=== PATIENT | female | born 1975 | race Caucasian/White ===

== ENCOUNTER 2020-09-10 08:27 | Inpatient (IN) | payer BC, SELFPAY ==
[2020-09-10] VITALS (7 sets, daily range): BP systolic 98–101; BP diastolic 43–68
[~2020-09-10] VITALS: Ht 160 cm; Wt 51.7 kg
--- NOTE | 2020-09-10 08:27 | NUR ---
Patient ALBERTOSkylar LLOYD, triaged by RN. Waiting for an available bed.
--- NOTE | 2020-09-10 10:41 | NUR ---
Patient transferred to [facility]. RN evaluating patient.
--- NOTE | 2020-09-10 10:55 | NUR ---
Patient's Oncologist: Dr. Gonzalez [facility] [phone]
--- NOTE | 2020-09-10 11:01 | NUR ---
is evaluating the patient at bedside.
[2020-09-10] MEDS ORDERED: ONDANSETRON 4 MG/2 ML VIAL IVP ONE (11:05)
[2020-09-10] MEDS ORDERED: NACL 0.9% 1,000 ML IV ONE (11:05)
[2020-09-10] MEDS ORDERED: fentaNYL citrate 0.05 MG/ML VIAL IVP ONE (11:05)
--- NOTE | 2020-09-10 11:24 | NUR ---
DUE TO HYPOTENSION -- FENTANYL HELD.
--- NOTE | 2020-09-10 11:30 | NUR ---
RIGHT SUBCLAVIAN PORTACATH ACCESSED WITH STERILE TECHNIQUE. +BLOOD RETURN. FLUSHED WITH 10CC NORMAL SALINE WITHOUT DIFFICULTY.
[2020-09-10 12:10] LABS: BASOPHILS % (AUTO) 1.6 % (0.0-2.0); EOSINOPHILS % (AUTO) 0.1 % (0.0-4.0); HEMATOCRIT 44.1 % (36-48); HEMOGLOBIN 14.1 g/dL (12.0-16.0); LYMPHOCYTES # (AUTO) 0.1 K/uL (2.5-16.5); LYMPHOCYTES % (AUTO) 3.6 % (20.5-51.1); MEAN CORPUSCULAR HEMOGLOBIN 28 pg (27-31); MEAN CORPUSCULAR HGB CONC 32 g/dL (33-37); MEAN CORPUSCULAR VOLUME 87.3 fL (80-94); MONOCYTES # (AUTO) 0.2 K/uL (0.8-1.0); MONOCYTES % (AUTO) 8.3 % (1.7-9.3); NEUTROPHILS # (AUTO) 2.3 K/uL (1.8-7.7); NEUTROPHILS % (AUTO) 86.4 % (42.2-75.2); PLATELET COUNT (AUTO) 478 K/uL (140-450); RED BLOOD CELL COUNT(AUTO) 5.06 MIL/uL (4.20-5.40); RED CELL DISTRIBUTION WIDTH 18.8 % (11.6-13.7); WHITE BLOOD COUNT (AUTO) 2.6 K/uL (4.8-10.8)
--- NOTE | 2020-09-10 12:18 | NUR ---
TO CT VIA [facility].
[2020-09-10 12:34] LABS: ALBUMIN 2.4 g/dL (3.4-5.0); ANION GAP 22.2 (8-16); CARBON DIOXIDE 16.3 mmol/L (21-32); CREATININE 1.4 mg/dL (0.6-1.3); POTASSIUM 4.5 mmol/L (3.5-5.1); TOTAL BILIRUBIN 1.2 mg/dL (0.0-1.0)
[2020-09-10] MEDS ORDERED: LEVOFLOXACIN 500 MG/D5W PREMIX 100 ML IV ONE (13:05)
[2020-09-10] MEDS ORDERED: metroNIDAZOLE 500 MG/NS PREMIX 100 ML IV ONE ×2 (13:05→16:28)
[2020-09-10] MEDS ORDERED: MORPHINE SULFATE 2 MG/ML SYR IVP PRN (14:45)
[2020-09-10 15:02] LABS: PROTHROMBIN TIME 12.5 secs (10.8-13.4)
--- NOTE | 2020-09-10 15:25 | NUR ---
Patient's sister: Deepa [phone].
--- NOTE | 2020-09-10 15:25 | NUR ---
SOCIAL WORK NOTE: SHANE WAS INFORMED THAT PATIENT'S FAMILY WOULD LIKE TO SPEAK TO GLUE MAKER BONE. SHANE CONTACTED PATIENT'S SISTER ROSALIE [phone]. ROSALIE'S MAILBOX WAS FULL AND SHANE WAS UNABLE TO LEAVE VM. Addendum: 09/11/20 at 1109 by Angel Serrato SS Patient's Orientation Unable To Assess Information Provided By DARBY IVORY - MOTHER Comments SW WAS UNABLE TO MEET PATIENT AT BEDSIDE. SHANE COMPLETED ASSESSMENT WITH PATIENT'S MOTHER. PATIENT'S MOTHER REQUESTED FOR PATIENT'S SISTER TO BE ADDED TO EMERGENCY CONTACTS. Commercial Insurance Underwriter, Realtionship and Phone Number DARBY DODSON MOTHER [phone] ROSALIE DODSON SISTER [phone] Healthcare Power [facility] No Does Patient Have a POLST No Identifying Problems No Social Work Triggers Is A Social Work Consult Needed No Mandate Report Filed No Explanation Of Identifying Problems PATIENT IS A 44-YEAR-OLD FEMALE ADMITTED FOR PERFORATED VISCUS. PATIENT HAS PMHX OF CANCER. PER MOTHER, PATIENT LIVED ALONE AT [address] [place] [address] ALONE, BUT NOW LIVES WITH PARENTS. PATIENT RECEIVES CHEMO/RADIATION FROM [facility]. Admitted From Home Pre-Admission Level Of Functioning Status Independent/Ambulatory Prior Resources/Services Used In Last 12 Months No Prior Resources Used Prior DME No Prior DME Used Dialysis Comments N/A Living Situation Lives With Family House Patient Had Caregiver No Home Support No Caregiver Issues Financial Issues No Known Financial Issue Referral To The Financial Counselor Needed No Factors/Needs No D/C Needs Identified Pt/Rep Participated In Discharge Plan Yes Patient/Family Agress With Discharge Plan Yes Discharge Plan Comments TENTATIVE DISCHARGE PLAN IS FOR PATIENT TO RETURN HOME. DC Plan Status Initiated Addendum: 09/17/20 at 1418 by Angel Serrato PER PHYSICIAN'S ORDER, SHANE FAXED CLINICALS TO [facility]. SHANE WILL FOLLOW UP. Addendum: 09/17/20 at 1453 by Angel TURNER SHANE CONTACTED [facility] [phone]. SHANE SPOKE WITH ROLANDO AND VERIFIED THAT CLINICALS WERE RECEIVED. ROLANDO STATED THAT [employer] DOES NOT ACCEPT [facility]. SHANE CONTACTED [facility] [phone] AND SPOKE TO RHODA MCARTHUR FAX NUMBER - [phone]. PER RHODA [facility] IS CURRENTLY NOT ACCEPTING PATIENTS. SHANE CONTACTED [facility] AND SPOKE TO SHAUN. COLON PROVIDED FAX NUMBER [phone]. SHANE WILL FOLLOW UP WITH [facility]. Addendum: 09/17/20 at 1455 by Angel Serrato SHANE ALSO [facility]ED CLINICALS TO [facility]. Addendum: 09/17/20 at 1532 by Angel TURNER SHANE CONTACTED [facility] [phone] AND SPOKE TO LEAH WHO STATED THAT PACKET WOULD BE REVIEWED. SHANE CONTACTED [facility] [phone] [facility] [phone] WHO STATED THAT [facility] IS UNABLE TO TAKE BLUE SHIELD PPO AT THIS TIME. SHANE CONTACTED [facility] [phone] TO FAX TO [phone]. SHANE WILL FOLLOW UP. Addendum: 09/18/20 at 1136 by Angel Serrato SS SHANE CONTACTED [facility] AND SPOKE TO SHAUN. COLON STATED THAT HE WILL CONTACT DON REGARDING IF HE CAN ACCEPT PATIENT.
[2020-09-10] MEDS ORDERED: BUPIVACAINE-MPF 0.25% 30 ML VIAL INJ ONE (15:44)
--- NOTE | 2020-09-10 15:53 | NUR ---
Patient's daugher: Virgen Mars [phone].
--- NOTE | 2020-09-10 16:29 | NUR ---
PT LEFT TO OR AT THIS TIME. REPORT GIVEN TO HIWOT CHAPMAN AT BEDSIDE. ALL QUESTIONS ANSWERED.
[2020-09-10] MEDS ORDERED: SUGAMMADEX SODIUM 200 MG/2 ML VIAL IV ONE (17:07)
[2020-09-10] MEDS ORDERED: SUCCINYLCHOLINE CHLORIDE 200 MG/10 ML VIAL IVP ONE (17:07)
[2020-09-10] MEDS ORDERED: DESFLURANE 240 ML BTL INH ONE (17:07)
[2020-09-10] MEDS ORDERED: MIDAZOLAM 2 MG/2 ML VIAL ONE (17:07)
[2020-09-10] MEDS ORDERED: fentaNYL citrate 0.05 MG/ML VIAL ONE (17:07)
[2020-09-10] MEDS ORDERED: PROPOFOL 200 MG/20 ML VIAL IV ONE (17:07)
[2020-09-10] MEDS ORDERED: LACTATED RINGERS 1,000 ML IV SCH (18:35)
[2020-09-10] MEDS: FLUCONAZOLE 200 MG/NS PREMIX 100 ML IV SCH (19:00)
--- NOTE | 2020-09-10 19:10 | NUR ---
RECEIVED REPORT FROM OR NURSE FOR CONTINUITY OF CARE. PT IN BED, SUPINE POSITION. HOB ELEVATED. LETHARGIC, FLACC 0, NO SOB, NO APPARENT DISTRESS. ETT TO VENT: AC/VC FIO2 45% PEEP 5. S/P EXPLORE LAP, GASTRICULCER PERFORATION. WITH HX OF METASTASIZED CERVICAL CANCER. WITH LEFT EJ 18G, RIGH UPPER CHEST PORTACATH. PARKER INTACT AND PATENT. SAFETY PRECAUTIONS IN PLACE. WILL CONT TO MONITOR.
--- NOTE | 2020-09-10 19:17 | NUR ---
PT RECEIVED FROM OR AND PLACED ON VENT SETTINGS ANESTHESIOLOGIST PROVIDED VC 400 +5, f12 45%. PT IS AWAKE TOLERATED TRANSFER WELL. ALARMS ON AND AUDIBLE, VENT PLUGGED INTO RED OUTLET, AND AMBU AT BEDSIDE. WILL CONTINUE TO MONITOR.
[2020-09-10] MEDS ORDERED: MIDAZOLAM MDV 50 MG in NACL 0.9% 40 ML IV PRN (19:20)
[2020-09-10] MEDS ORDERED: fentaNYL citrate 1 MG in NACL 0.9% 80 ML IV PRN (19:20)
--- NOTE | 2020-09-10 19:30 | NUR ---
RECEIVED REPORT FROM DAY SHIFT. PT S/P EX LAP FOR REPAIR OF PERF ULCER. MID ABD DRESSING IN PLACE; CDI. X2 URSULA DRAINS #1 LEFT #2 RIGHT SEROSANG DRAINAGE NOTED. ETT TO VENT ON 45% FIO2 PEEP 5 R 12, ST 120S, NO EDEMA NOTED. PARKER CATH IN PLACE, DARK URINE NOTED. NGT TO R NARES, CLAMPED, PT NPO @ THIS TIME. 18 G L EJ NOTED, R SIDED UPPER CHEST PORTACATH NOTED. BED LOCKED IN LOWEST POSITION. WILL CONTINUE TO OBSERVE.
[2020-09-10] MEDS: FAMOTIDINE 20 MG/2 ML VIAL IV SCH (21:00)
--- NOTE | 2020-09-10 21:45 | NUR ---
FENTANYL 0.5 MCG/KG AND VERSED @ 1 MG/HR DRIP STARTED, RASS-1. WILL CONTINUE TO OBSERVE.
[2020-09-10] MEDS ORDERED: MIDAZOLAM MDV 100 MG in NACL 0.9% 80 ML IV PRN (22:05)
[2020-09-11] VITALS (28 sets, daily range): BP systolic 97–130; BP diastolic 60–112
[2020-09-11] MEDS: NACL 0.9% 1,000 ML IV SCH ×2 (01:15→11:17)
[2020-09-11] MEDS ORDERED: ACETAMINOPHEN 325 MG TAB PO PRN (01:15)
[2020-09-11] MEDS ORDERED: ONDANSETRON 4 MG/2 ML VIAL IM/IVP PRN (01:15)
[2020-09-11] MEDS ORDERED: LORazepam 2 MG/ML VIAL IM/IVP PRN (01:15)
[2020-09-11] MEDS ORDERED: HYDROcodone/APAP 5/325 MG 1 TAB TAB PO PRN (01:15)
[2020-09-11] MEDS ORDERED: ZOLPIDEM 5 MG TAB PO PRN (01:15)
[2020-09-11] MEDS ORDERED: POTASSIUM CHLORIDE 10 MEQ TABER PO PRN (01:15)
[2020-09-11] MEDS ORDERED: DOCUSATE SODIUM 100 MG GELCAP PO PRN (01:15)
--- NOTE | 2020-09-11 02:30 | NUR ---
PT HAS EYES CLOSED; AROUSABLE, RASS -1, DENIES PAIN @ THIS TIME. WILL CONTINUE TO OBSERVE, 100% SPO2, BP 104/62. WILL CONTINUE TO OBSERVE.
[2020-09-11] MEDS: PIPERACILLIN/TAZOBACTAM 2.25 GM in DEXTROSE 5% 50 ML IV SCH ×3 (05:00→21:00)
[2020-09-11] MEDS ORDERED: PIPERACILLIN/TAZOBACTAM 2.25 GM VIAL IV ONE (05:29)
--- NOTE | 2020-09-11 06:48 | NUR ---
PATIENT HAS BEEN SCREENED AND CATEGORIZED HIGH NUTRITION RISK. PATIENT WILL BE SEEN WITHIN 1-2 DAYS OF ADMISSION. 09/11/20 - 09/12/20 MAYO COOPER MBA, RD
[2020-09-11 08:03] LABS: PROTHROMBIN TIME 15.7 secs (10.8-13.4)
[2020-09-11 08:09] LABS: CHOL/HDL RATIO 4.6 (1-4.5); MAGNESIUM 2.1 mg/dL (1.8-2.4); PHOSPHORUS 5.4 mg/dL (2.5-4.9); THYROID STIMULATING HORMONE 1.93 uIU/mL (0.34-3.74)
--- NOTE | 2020-09-11 08:30 | NUR ---
RECEIVED REPORT FROM NIGHTSHIFT SHIFT. ETT TO VENT ON 45% FIO2 PEEP 5 R 12, NO SIGNS OF DISTRESS NOTED. ABLE TO MAKE SOME NEEDS KNOWN. MID ABD DRESSING IN PLACE; CDI. X2 URSULA DRAINS #1 LEFT #[address] DRAINAGE NOT[address] ST 120S, NO EDEMA NOTED. PARKER CATH IN PLACE, DARK URINE NOTED. NGT TO R NARES, CLAMPED, PT NPO @ THIS TIME. 18 G L EJ NOTED, R SIDED UPPER CHEST PORTACATH NOTED. BED LOCKED IN LOWEST POSITION. SAFETY MEASURES IN PLACE. WILL CONTINUE TO MONITOR
--- NOTE | 2020-09-11 08:30 | NUR ---
REPORT GIVEN TO DAY SHIFT FOR CONTINUITY OF CARE.
[2020-09-11] MEDS: FAMOTIDINE 20 MG/2 ML VIAL IV SCH ×2 (09:35→21:00)
--- NOTE | 2020-09-11 09:49 | NUR ---
ADMINISTERED SCHED MED. PT TOLERATED WELL. SAFETY MEASURES IN PLACE. WILL CONTINUE TO MONITOR
--- NOTE | 2020-09-11 13:15 | NUR ---
ADMINISTERED SCHED MED. PT TOLERATED WELL. SAFETY MEASURES IN PLACE. WILL CONTINUE TO MONITOR
[2020-09-11] MEDS: LACTATED RINGERS 1,000 ML IV SCH ×2 (13:57→21:50)
[2020-09-11 14:32] LABS: BASOPHILS # (AUTO) 0.1 K/uL (0.00-0.22); BASOPHILS % (AUTO) 0.7 % (0.0-2.0); EOSINOPHILS # (AUTO) 0.1 K/uL (0-0.4); EOSINOPHILS % (AUTO) 0.7 % (0.0-4.0); HEMATOCRIT 37.5 % (36-48); HEMOGLOBIN 12.2 g/dL (12.0-16.0); LYMPHOCYTES # (AUTO) 0.1 K/uL (2.5-16.5); LYMPHOCYTES % (AUTO) 1.4 % (20.5-51.1); MEAN CORPUSCULAR HEMOGLOBIN 28 pg (27-31); MEAN CORPUSCULAR HGB CONC 33 g/dL (33-37); MEAN CORPUSCULAR VOLUME 85.3 fL (80-94); MONOCYTES # (AUTO) 0.3 K/uL (0.8-1.0); MONOCYTES % (AUTO) 4.2 % (1.7-9.3); NEUTROPHILS # (AUTO) 6.8 K/uL (1.8-7.7); PLATELET COUNT (AUTO) 280 K/uL (140-450); RED BLOOD CELL COUNT(AUTO) 4.39 MIL/uL (4.20-5.40); RED CELL DISTRIBUTION WIDTH 19.2 % (11.6-13.7); WHITE BLOOD COUNT (AUTO) 7.3 K/uL (4.8-10.8)
[2020-09-11 15:03] LABS: ANION GAP 16.6 (8-16); CARBON DIOXIDE 20.3 mmol/L (21-32); CREATININE 1.2 mg/dL (0.6-1.3)
[2020-09-11 15:10] LABS: POTASSIUM 5.9 mmol/L (3.5-5.1)
[2020-09-11] MEDS ORDERED: fentaNYL citrate - 50mL vial 2.5 MG in NACL 0.9% 200 ML IV PRN (18:05)
[2020-09-11] MEDS: FLUCONAZOLE 200 MG/NS PREMIX 100 ML IV SCH (18:21)
[2020-09-11] MEDS ORDERED: TPN PER PHARMACY MC PRN (20:15)
--- NOTE | 2020-09-11 20:35 | NUR ---
ENDORSED TO NIGHTSHIFT FOR CONTINUITY OF CARE
[2020-09-12] VITALS (24 sets, daily range): BP systolic 109–165; BP diastolic 72–91
[2020-09-12] MEDS: PIPERACILLIN/TAZOBACTAM 2.25 GM in DEXTROSE 5% 50 ML IV SCH ×3 (05:23→20:30)
[2020-09-12] MEDS: LACTATED RINGERS 1,000 ML IV SCH ×4 (05:24→20:38)
--- NOTE | 2020-09-12 07:15 | NUR ---
called picc rn and lm
[2020-09-12 07:46] LABS: BASOPHILS # (AUTO) 0.1 K/uL (0.00-0.22); BASOPHILS % (AUTO) 0.7 % (0.0-2.0); EOSINOPHILS # (AUTO) 0.1 K/uL (0-0.4); EOSINOPHILS % (AUTO) 0.6 % (0.0-4.0); HEMATOCRIT 36.1 % (36-48); HEMOGLOBIN 11.8 g/dL (12.0-16.0); LYMPHOCYTES # (AUTO) 0.1 K/uL (2.5-16.5); LYMPHOCYTES % (AUTO) 1.4 % (20.5-51.1); MEAN CORPUSCULAR HEMOGLOBIN 28 pg (27-31); MEAN CORPUSCULAR HGB CONC 33 g/dL (33-37); MEAN CORPUSCULAR VOLUME 85.5 fL (80-94); MONOCYTES # (AUTO) 0.3 K/uL (0.8-1.0); MONOCYTES % (AUTO) 3.8 % (1.7-9.3); NEUTROPHILS # (AUTO) 8.3 K/uL (1.8-7.7); NEUTROPHILS % (AUTO) 93.5 % (42.2-75.2); PLATELET COUNT (AUTO) 263 K/uL (140-450); RED BLOOD CELL COUNT(AUTO) 4.22 MIL/uL (4.20-5.40); RED CELL DISTRIBUTION WIDTH 19.3 % (11.6-13.7); WHITE BLOOD COUNT (AUTO) 8.9 K/uL (4.8-10.8)
[2020-09-12 07:51] LABS: MAGNESIUM 2.4 mg/dL (1.8-2.4); PHOSPHORUS 4.7 mg/dL (2.5-4.9)
[2020-09-12 08:14] LABS: ANION GAP 17.6 (8-16); CARBON DIOXIDE 19.8 mmol/L (21-32); CREATININE 1.2 mg/dL (0.6-1.3); POTASSIUM 5.4 mmol/L (3.5-5.1)
[2020-09-12] MEDS: FAMOTIDINE 20 MG/2 ML VIAL IV SCH (08:39)
--- NOTE | 2020-09-12 08:53 | NUR ---
RECEIVED ON A REHAPPSCAPE R860 VENTILATOR PLUGGED INTO RED OUTLET TOLERATING WELL WITHOUT ADVERSE REACTIONS NOTED TO AN ENDOTRACHEAL TUBE #7.0 SECURED AT 23cm TEETH/GUM LINE WITH A WELCON TRACHTAPE CUFF PRESSURE CHECKED NOTED AMBU BAG AT BEDSIDE LOC AWAKE ANE ALERT GOOD CHEST RISE AND AERATIN THROUGOUT BILATERAL LUNG JIMÉNEZ AIRWAY PATENT SECURITIES UNDERWRITER TO INITIATE CPAP/SBT TRIALS
--- NOTE | 2020-09-12 08:55 | NUR ---
PLACED ON CPAP/SBT TRIALS NOTED EQUAL CHEST RISE GOOD AERATION THROUGHOUT BILATERAL LUNG JIMÉNEZ AIRWAY PATENT JANAE/RN NOTIFIED
--- NOTE | 2020-09-12 08:58 | NUR ---
TOLERATING CPAP/SBT TRIALS WITHOUT COMPLICATIONS EQUAL CHEST RISE GOOD AERATION THROUGHOUT BILATERAL LUNG JIMÉNEZ AIRWAY PATENT OUTPATIENT PHLEBOTOMIST TO OBTAINED ABG AFTER 1 HOUR TO VALIDATE TRIAL
[2020-09-12 09:06] LABS: T4 (THYROXINE) 5.4 ug/dL (4.5-12.0)
--- NOTE | 2020-09-12 09:48 | NUR ---
09/12/20 RD INITIAL ASSESSMENT COMPLETED PLEASE REFER TO NUTRITION ASSESSMENT UNDER CARE ACTIVITY FOR ESTIMATED NUTRITIONAL NEEDS. RD RECOMMENDATIONS: 1. RECOMMEND CONTINUE NPO DIET 2. NUTRITIONAL NEEDS OF 7068-0448 KCALS & 74-103GM PROTEIN ARE CALCULATED. TPN PER PHARMACY TO MEET >75% NEEDS. 3. F/U 2-3 DAYS; HIGH RISK MAYO COOPER MBA, RD
--- NOTE | 2020-09-12 10:28 | NUR ---
PAGED DR. ANGELINA SIMS TO REVIEW ABG SAMPLE REPORT CALL BACK NUMBER [phone]
--- NOTE | 2020-09-12 10:37 | NUR ---
CALL BACK FROM DR. ANGELINA SIMS REVIEWED ABG SAMPLE REPORT TORBO: DC ALL SEDATION THEN EXTUBATE
--- NOTE | 2020-09-12 10:39 | NUR ---
DIRECTOR TOXICOLOGY CALLED CURRENT RN SPOKE TO CHRISTA/RN YAN TO CONTINUE CARE FROM NOC/RN CHRISTA CHECKED ON SEDATION ALL SEDATION HAS BEEN OFF SINCE 629
--- NOTE | 2020-09-12 10:40 | NUR ---
PATIENT PULLED OUT RIGHT EJ. PLACED NEW RIGHT EJ AT THIS TIME. LEVOPHED INFUSING AT 5 MCG. Addendum: 09/12/20 at 1058 by Rocco Slade RN RECEIVED REPORT FROM JANAE MI
--- NOTE | 2020-09-12 10:51 | NUR ---
COURTESY CALL TO DR. ROBERT CALL [phone] TO REVIEW ABG SAMPLE REPORT (REFERENCE 1028 DR. ANGELINA SIMS) SPOKE TO [facility]/OFFICE WILL PAGE DR. CALL CALL BACK NUMBER [phone]
--- NOTE | 2020-09-12 10:54 | NUR ---
RECEIVED REPORT FROM NOC NURSE JANAE RN, RT AT BEDSIDE TO PERFORM EXTUBATION
--- NOTE | 2020-09-12 11:23 | NUR ---
EXTUBATION EDUCATION PROVIDED TO PATIENT; BREATH SOUND CLEAR BILATERAL NO ENDOTRACHEAL SUCTIN REQUIRED AT THIS TIME PRE AND POST OROPHARYNGEAL SUCTION PERFORMED FIO2 OF 100% PROVIDED X 2 MINUTES REMOVED TRACHTAPE NO EVIDENCE OF SKIN TEARS CUFF PRESSURE DEFLATED INSTRUCTED PATIENT TO TAKE DEEP BREATH ENDOTRACHEAL REMOVED WITHOUT COMPLICATIONS/TRAUMA PLACED ON SUPPLEMENTAL OXYGEN AT 2 LPM VIA NC ROMIE, RT AT BEDSIDE FOR ASSIST
--- NOTE | 2020-09-12 11:30 | NUR ---
PT EXTUBATED AT THIS TIME WITH 2 RTS AT BEDSIDE. NO COMPLICATIONS. PATIENT PLACED ON 2L NC, SP02 98% AT THIS TIME.
--- NOTE | 2020-09-12 11:36 | NUR ---
RENAE CO FOUNDER AND CHAIRMAN: RECEIVED ORDER FOR SNF EVAL, PATIENT IS SEDATED AND INTUBATED CONTACTED PATIENTS DAUGHTER HEATHER DODSON [phone] HERSELF AND PATIENTS SISTER WAS ON SPEAKER PHONE DISCUSSING DECISION FOR SNF. PATIENTS SISTER STATED THAT THIS PATIENT RECEIVES OUT PATIENT CHEMO AND SHE WOULD LIKE TO CONTACT PATIENTS DOCTOR FIRST TO SEE WHAT HE RECOMMENDS. SHE WILL CONTACT ME BACK PROVIDED HER WITH MY EXTENSION. Addendum: 09/12/20 at 1311 by Joselyn Perdomo RENAE CO FOUNDER AND CHAIRMAN: PATIENTS SISTER BETTE CALLED BACK SHE HAD QUESTIONS REGARDING PATIENT, TRANSFERRED CALL TO . Addendum: 09/12/20 at 1425 by Katelynn Arana RECEIVED A TRANSFERRED CALL FROM PATIENT'S SISTER ROSALIE, STATING THAT SHE STATED THAT SHE IS NOT DECIDED YET BETWEEN SNF AND HOME HEALTH. ALL HER CONCERNS AND QUESTIONS ANSWERED. SHE ASKED IF WE HAVE ANY RECOMMENDATIONS. INFORMED HER THAT DEPENDING ON WHICHEVER THE INSURANCE IS CONTRACTED WITH AND ONCE WE GET THE INFORMATION, I WILL LET HER KNOW SO, SHE CAN LOOK IT UP AND IS IN AGREEMENT. Addendum: 09/12/20 at 1604 by Katelynn Arana CM RECEIVED A CALL FROM PATIENT'S DAUGHTER ROSALIE AND MOTHER DARBY TO GATHER MORE INFORMATION ABOUT HOME HEALTH AND SNF. PROVIDED THEM WITH ALL THE INFORMATION NEEDED. SHE STATED SHE WILL CALL INSURANCE WELL TO GET THE SNF LIST. Addendum: 09/12/20 at 1635 by Katelynn Arana CONTACTED [facility] AT [phone], ABLE TO SPEAK TO [facility]. PER ABHAY, I NEED TO CALL [phone] SO I CAN GET THE LIST OF CONTRACTED SNF AND HOME HEALTH. CONTACTED THE PROVIDED NUMBER, OFFICE IS CLOSED AND TO FOLLOW UP NEXT DAY. WILL FOLLOW UP. Addendum: 09/13/20 at 1427 by Katelynn Arana CM RECEIVED A CALL FROM ALONZO DAIGLE AT [facility], TO GATHER MORE INFORMATION ABOUT THIS PATIENT. PROVIDED ALL INFORMATION NEEDED. I INQUIRED ABOUT DC PLANNING, SHE STATED SHE IS NOT A CM HOWEVER SHE CAN HAVE A CM CONTACT ME. PROVIDED HER OF MY CONTACT INFO. I ALSO REQUESTED LIST OF CONTRACTED HOME HEALTH AND SNF. SHE STATED SHE CAN E MAIL IT TO ME. PROVIDED HER OF MY E MAIL ADDRESS. WILL FOLLOW UP. Addendum: 09/13/20 at 1428 by Katelynn Arana CM CONTACTED ROSALIE AND INFORMED HER THAT STILL AWAITING FOR THE LIST AND SOON I HAVE IT, I WILL CALL HER BACK. SHE STATED IF I CAN E MAIL IT TO HER AT [email or web address]. Addendum: 09/13/20 at 1429 by Katelynn Arana CM PHONE NUMBER FOR ALONZO DAIGLE AT [facility] IS [phone]. Addendum: 09/14/20 at 1104 by Katelynn Arana CM RECEIVED THE LIST OF CONTRACTED SNF AND HH AROUND PATIENT'S ADDRESS. COPY SENT TO PATIENT'S SISTER ROSALIE AT [employer]. WILL FOLLOW UP. Addendum: 09/14/20 at 1107 by Katelynn Arana CM CONTACTED PATIENT'S SISTER BETTE, TO FOLLOW UP IF THEY RECEIVE THE LIST, NO ANSWER. LEFT MESSAGE. Addendum: 09/18/20 at 1331 by Katelynn Arana CM CONTACTED CONTACTED THE FOLLOWING HOME HEALTH AGENCIES: [facility] [phone]. PER DAGO, THEY ARE NOT CONTRACTED WITH [facility]. [facility] [phone]. PER ROBER TO FAX REFERRAL TO [phone]. [facility] [phone]. PER GAURAV TO SEND REFERRAL TO [phone] [facility] [phone]. PER ESTRELLA TO SEND REFERRAL TO [phone] [facility] [phone]. PER JOVITA THEY ARE NOT CONTRACTED WITH [employer]. [facility] [phone]. PER GWEN SEND REFERRAL TO [phone]. [facility] [phone]. PER JAMAL SEND REFERRAL TO [phone]. [facility] [phone]. PER MAURICE, THEY ARE AT CAPACITY AT THIS TIME AND NOT ACCEPTING ANY NEW REFERRALS. REFERRAL SENT TO THE PROVIDED FAX NUMBERS. WILL FOLLOW UP. Addendum: 09/18/20 at 1546 by Katelynn Arana CM RECEIVED A CALL FROM [facility], STATING THAT THEY ARE NOT ABLE ACCEPT THE PATIENT DUE TO THEY ARE AT CAPACITY AT THIS TIME. PER JAMAL OF [facility] THEY ARE NOT ABLE TO ACCEPT THE PATIENT BECAUSE THEY DO NOT HAVE THE NURSE AVAILABLE AROUND THE AREA. Addendum: 09/18/20 at 1557 by Katelynn Arana CM RECEIVED A CALL FROM [facility], STATING THAT THEY ARE ABLE TO ACCEPT THE PATIENT. SHE STATED IF POSSIBLE TO FAX THEM WOUND CARE SUPPLIES ORDER SO THEY CAN REQUEST IT AHEAD OF TIME. SHE ALSO REQUESTED PCP'S NAME, ADDRESS AND PHONE NUMBER. INFORMED HER THAT I WILL GATHER THE INFORMATION AND WILL CALL HER BACK. Addendum: 09/18/20 at 1604 [address] Arana CM DR. LOCK MADE AWARE. PER DR. LOCK, HE WILL CHECK WITH SURGERY ONCE CLEARED WILL DC. LARSEN TO PUT IN URSULA DRAIN CARE ORDER. ORDER TRANSCRIBED AND FAX TO [employer] Addendum: 09/18/20 at 1607 by Katelynn Arana CONTACTED PATIENT'S SISTER ROSALIE. SHE STATED SHE WILL CALL ME BACK IN 15 MINS BECAUSE SHE IS IN A MIDDLE OF SOMETHING. RECEIVED A CALL FROM [facility] OF [employer] STATING THAT THEY ARE NOT ABLE TO ACCEPT THE PATIENT DUE TO THEY DO NOT HAVE A NURSE WHO CAN SEE THE PATIENT AT THIS TIME. Addendum: 09/18/20 at 1640 by Katelynn Arana RECEIVED A CALL BACK FROM PATIENT'S SISTER ROSALIE. INFORMED HER THAT [facility] IS ABLE TO ACCEPT THE PATIENT. SHE STATED SHE IS NOT SATISFIED WITH THE RATINGS FOR [facility]. SHE REQUESTED FOR ME TO REACH OUT TO THE INSURANCE AGAIN AND FIND OUT IF THEY HAVE ANY OTHER HOME HEALTH OUTSIDE THE AREA. CONTACTED JAYLA ROSADO AT [facility]. SHE STATED SHE WILL FIND OUT TOMORROW AND WILL E MAIL IT TO ME. WILL FOLLOW UP. Addendum: 09/19/20 at 1009 by Joselyn Perdomo CM RENAE PRUITT: CONTACTED [facility] [phone] REGARDING HOSPITAL BED. SPOKE TO REP ANTHONY AND PROVIDED HIM WITH ALL OF THE PATIENTS INFORMATION. HE STATED THAT PATIENT WOULD HAVE TO CONTACT MEMBER SERVICES ON THEIR OWN TO FIND AN IN NETWORK SUPPLIER. SPOKE TO PATIENTS SISTER ROSALIE, SHE STATED THEY NO LONGER NEED A HOSPITAL BED THAT A FAMILY MEMBER IS GOING TO PROVIDE ONE FOR THEM. SHE IS NOW REQUESTING A WHEELCHAIR AND STILL LOOKING FOR ANOTHER HOME HEALTH AGENCY. SHE IS ALSO REQUESTING IF THE ACCEPTING HOME HEALTH AGENCY IS ABLE TO DRAW BLOOD FOR THE PATIENT PER THE PATIENTS ONCOLOGIST REQUEST Addendum: 09/19/20 at 1233 by Angel Serrato SS SW FAXED INQUIRY FOR HOME HEALTH TO: [facility] [phone] - DO NOT ACCEPT [employer] PATY [facility] [phone] - DO NOT ACCEPT BL[employer] SHIELD PRIORITY KINJAL [facility] [phone] - DO NOT ACCEPT [employer]ELD ONORIA [facility] [phone] - DO NOT ACCEPT BLUE SHIELD Addendum: 09/19/20 at 1245 by Angel Serrato SS SHANE CONTACTED SISTER ROSALIE [phone] TO DISCUSS DISCHARGE PLAN. SW LEFT VM AND WILL FOLLOW UP. Addendum: 09/19/20 at 1612 by Katelynn Arana CM ABLE TO SPEAK TO PATIENT'S SISTER ROSALIE, STATING THAT SHE IS OK WITH [facility] NOW. SHE STATED THAT SHE RECEIVED A CALL FROM THEM AND SHE IS SATISFIED WITH THE SERVICES THEY CAN OFFER. SHE REQUESTED TO HAVE DR. LOCK CALL HER FOR UPDATES. DR. LOCK MADE AWARE. RECEIVED ANOTHER CALL FROM PATIENT'S SISTER ROSALIE, STATING THAT SHE RECEIVED A CALL FROM DR. CALL THAT PATIENT IS NOT REQUIRING TPN ANY LONGER. SHE STATED FOR LAB WORKS SHE WILL REACH OUT TO THE ONCOLOGIST TO CONTACT [facility] FOR WEEKLY LAB ORDERS. INFORMED HER THAT WE WILL CALL HER ONCE PATIENT IS READY FOR DISCHARGE PENDING CT RESULTS AND IS IN AGREEMENT. Addendum: 09/20/20 at 1141 by Katelynn Arana CM JAYLA COLEMAN OF [facility] [phone] UPDATED OF THE PATIENT'S CONDITION. PER [place], STAY IS APPROVED UNTIL THE AND THE REMAINING DAYS PENDING CLINICAL REVIEW. UPDATED CLINICALS FAXED TO [phone]. Addendum: 09/21/20 at 1552 by Katelynn Arana CM LATE ENTRY: CONTACTED PATIENT'S SISTER ROSALIE TO DISCUSS DC PLAN FOR TODAY. INFORMED HER THAT I DO NOT HAVE DISCHARGE ORDER YET OF THE MOMENT AND WILL LET HER KNOW ONCE IT IS IN. RECEIVED A CALL FROM ROSALIE REGARDING CONCERNS ON HOW TO GET UP THE PATIENT TO THE RESTROOM. INFORMED HER THAT THE BEST PERSON TO ANSWER THAT IS THE NURSE. SHE ALSO ASKED ABOUT THE URSULA DRAIN CARE. I INFORMED HER THAT THEY DO NOT HAVE TO CHANGE THE DRESSING UNLESS IT IS SOILED OR BULB IS LEAKING. INFORMED HER THAT THE BULB LOCK SOMETIMES GET LOOSE AND ALL THEY HAVE TO DO IS TIGHTEN IT. PRIMARY RN ROLA MADE AWARE. SHE STATED THAT THE NURSE FROM YESTERDAY, INSTRUCTED THE FAMILY ON HOW TO TURN AND REPOSITION THE PATIENT. PER RN PATIENT PATIENT IS ABLE TO TURN HERSELF BUT REFUSES TO. RN ALSO MENTIONED THAT SHE DOES NOT EVEN CALL WHEN SHE GOES AND THE PATIENT ONLY CALLS WHEN SHE IS WET ALREADY. RECEIVED A CALL FROM ESTRELLA OF [facility], INFORMING ME THAT THEY RECEIVED A CALL FROM THE PATIENT'S SISTER ROSALIE INFORMING THEM THAT DOES NOT WANT A NURSE WITH COVID EXPOSURE TO COME SEE HER SISTER. [facility] EXPLAINED TO HER THAT MOST OF THE NURSES HAVE COVID EXPOSURE. INFORMED ESTRELLA THAT I WILL REACH OUT TO ROSALIE AND WILL CALL THEM BACK FOR UPDATES. SPOKE TO ROSALIE. PER ROSALIE, BECAUSE HER SISTER IS IMMUNOCOMPROMISED, SHE DOES NOT WANT NURSES THAT HAVE COVID EXPOSURE TO SEE HER SISTER. EXPLAINED TO HER THAT WITH THE SITUATION WE ARE HAVING RIGHT NOW IT IS HARD TO FIND A HOME HEALTH NURSE OR A NURSE PER SE THAT DOES NOT HAVE ANY COVID EXPOSURE. SHE STATED SHE JUST HAVE TO SAY NO TO ALL [facility]. SHE ALSO TOLD ME THAT SHE ALREADY CONTACTED [facility] AND THEY HAVE SOME NURSES THAT DOES NOT HAVE ANY COVID EXPOSURE. INFORMED HER THAT WE REACHED OUT TO [facility] ON THE AND THEY TOLD THE SHANE DIA THAT [facility]. SHE STATED JUST TO TRY AGAIN. CONTACTED [facility] AT [phone], ABLE TO SPEAK TO ROCIO. ROCIO CONFIRMED THAT THEY HAVE SOME NURSES THAT DOES NOT HAVE ANY COVID EXPOSURE. SHE STATED TO GO AHEAD AND FAX OVER REFERRAL TO [phone]. SENT THE REFERRAL X2 TO THAT NUMBER AND WAS NOT GOING THROUGH. CALLED [facility] AGAIN, PER ROCIO TO GO AHEAD AND FAX IT TO [phone]. REFERRAL SENT. ROCIO OF [facility] CONFIRMED THAT THEY RECEIVED THE REFERRAL AND IS REVIEWING IT AT THIS TIME AND WILL CALL ME BACK IN 30 MINS. RECEIVED A CALL AGAIN (CALLING LIKE EVERY 15 MINS TO FOLLOW UP) PATIENT'S SISTER TO FOLLOW UP ON [facility]. INFORMED HER THAT I SENT THE REFERRAL TO THEM AND ONCE I HEAR BACK FROM THEM I WILL CALL HER BACK. JAYLA COLEMAN OF [facility] MADE AWARE. SHE STATED, IF THE DISCHARGE ORDER IS UP AND [facility] IS NOT ABLE TO ACCEPT WE CAN TELL THE PATIENT'S SISTER THAT THEY WILL BE FINANCIALLY RESPONSIBLE FROM HERE ON. SHE ALSO STATED THAT THEY WILL ON A HIGHER FINANCIAL RISK BECAUSE WE ARE NOT CONTRACTED WITH [facility]. SHE STATED THAT AUTH IS APPROVED UNTIL TODAY AND THE REMAINING DAYS WILL BE AT RISK FOR DENIAL ONCE PATIENT IS STABLE FOR DISCHARGE. SHE STATED THERE WILL BE NO DEMURRAGE MAN DURING THE WEEKEND AND THEIR OFFICE WILL BE BACK ON THURSDAY DUE TO THE HOLIDAY ON THURSDAY. SHE STATED SHE WILL FOLLOW UP ON THURSDAY IF SHE IS STILL HERE. Addendum: 09/21/20 at 1654 by Katelynn Arana RECEIVED A CALL BACK FROM ROCIO AT [employer], STATING THAT THEY ARE NOT CONTRACTED WITH [facility]. SHE STATED IF [facility] IS WILLING TO PROVIDE THEM AUTH, THEY CAN TAKE THE PATIENT. JAYLA COLEMAN OF [employer] MADE AWARE. PER [place], THEY ARE NOT ABLE TO PROVIDE AN KEL BECAUSE THERE IS AN ACCEPTING HOME HEALTH. SHE STATED THAT SHE ALSO CHECKED IF THE PATIENT HAS A NON PAR BENEFIT BUT UNFORTUNATELY NONE FOR THIS PATIENT. PATIENT'S SISTER ROSALIE MADE AWARE. SHE STATED SHE WILL CALL ME BACK. RECEIVED A CALL BACK FROM PATIENT'S ROSALIE, STATING THAT THEY ARE OK WITH ALL STAR NOW. SHE STATED IF I CAN LET ISHAN KNOW THAT IF THEY CAN SEN A NURSE THAT HAS LESS EXPOSURE TO COVID BECAUSE SHE HAS HER PARENTS THAT ARE ELDERLY AT HOME WELL. INFORMED HER THAT I WILL REACH OUT TO ALL STAR. ESTRELLA OF ALL [facility] MADE AWARE. SHE STATED SHE WILL SEND A NURSE TO SEE THE PATIENT TOMORROW. PRIMARY RN ROLA MADE AWARE. I ALSO INFORMED HER TO SEND 3-5 DAYS SUPPLIES FOR URSULA DRAIN CARE.
[2020-09-12] MEDS ORDERED: PIPERACILLIN/TAZOBACTAM 2.25 GM VIAL IV ONE (12:01)
--- NOTE | 2020-09-12 12:42 | NUR ---
PICC LINE PLACED ON TO RIGHT UPPER ARM. CXR ORDERED TO CONFIRM PLACEMENT
--- NOTE | 2020-09-12 14:00 | NUR ---
PATIENT TOLERATING NC WELL. NO RESP DISTRESS NOTED AT THIS TIME. PATIENT ABLE TO VERBALIZE NEEDS. DENIES ANY PAIN AT THIS TIME.
[2020-09-12] MEDS: FLUCONAZOLE 200 MG/NS PREMIX 100 ML IV SCH (18:00)
--- NOTE | 2020-09-12 19:23 | NUR ---
ENDORSED TO NIGHTSHIFT FOR CONTINUITY OF CARE
--- NOTE | 2020-09-12 19:30 | NUR ---
RECEIVED REPORT FROM [facility] NURSE. PATIENT ON 2L NC, TOLERATING WELL. PATIENT ON CONTINUOUS TELE MONITOR AND FREQUENT ROUNDING/MONITORING. PARKER CATH IN PLACE AND PATENT. LEFT AND RIGHT URSULA DRAINS IN PLACE AND DRAINING. IV SITES RIGHT UPPER ARM PICC LINE DOUBLE LUMEN, RIGHT PORTICATH ACCESS. DRIPS LACTATED RINGERS SET @ 150ML/HR. ABDOMINAL DRESSING STATUS POST SURGERY. PATIENT BED LOCKED AND LOWERED, PATIENT IN A POSITION OF COMFORT, CALL LIGHT WITHIN REACH OF PATIENT. FREQUENT ROUNDING AND MONITORING.
[2020-09-12] MEDS: MULTIVITAMIN-12 10 ML in DEXTROSE 50% 600 ML, AMINO ACIDS 8.5% 500 ML, FAT EMULSION 20%... IV SCH ×4 (20:32)
[2020-09-12] MEDS ORDERED: INSULIN LISPRO SLIDING SCALE 100 UNITS/ML VIAL SUBQ PRN (21:00)
[2020-09-12] MEDS: BLOOD GLUCOSE MONITORING 1 DEV DEV MC SCH ×2 (21:30→23:58)
--- NOTE | 2020-09-12 23:00 | NUR ---
ABDOMINAL DRESSING CLEANED AND CHANGED OVER POST OP SITE.
[2020-09-13] VITALS (11 sets, daily range): BP systolic 118–141; BP diastolic 78–93
--- NOTE | 2020-09-13 01:00 | NUR ---
FREQUENT ROUNDING AND MONITORING OF PATIENT, TOLERATING NC 2L WELL, RESTING, CALM, IN A POSITION OF COMFORT. CONTINUOUS TELE MONITORING.
--- NOTE | 2020-09-13 04:00 | NUR ---
FREQUENT MONITORING AND ROUNDING, PATIENT IN A POSITION OF COMFORT, CALM, RESTING.
[2020-09-13] MEDS: LACTATED RINGERS 1,000 ML IV SCH ×3 (04:13→22:03)
[2020-09-13] MEDS: PIPERACILLIN/TAZOBACTAM 2.25 GM in DEXTROSE 5% 50 ML IV SCH ×3 (05:07→20:34)
[2020-09-13] MEDS: BLOOD GLUCOSE MONITORING 1 DEV DEV MC SCH ×4 (05:16→18:47)
--- NOTE | 2020-09-13 07:30 | NUR ---
REPORT AND TRANSFER OF CARE GIVEN TO [facility].
--- NOTE | 2020-09-13 07:31 | NUR ---
RECEIVED BEDSIDE REPORT FROM PRIVACY ANALYST NURSE SHAYAN RN, PT RESTING, NO DISTRESS NOTED, PICC LINE DOUBLE LUMEN TO R UPPER ARM, PATENT INTACT, INFUSING TPN @ 50ML/HR, TOLERATING WELL, REJ IV 18G PATENT INTACT, SL, R CHEST PORTACATH IN PLACE WITH IV LR @ 150ML/HR, INFUSING WELL, PT ON 2LPM O2 VIA NC, NO SOB NOTED, SATURATION 97%, PARKER CATH IN PLACE DRAINING TO GRAVITY, PT S/P SURGERY DRESSINGS CLEAN DRY AND INTACT, URSULA DRAIN TO LEFT AND RIGHT, IN PLACE DRAINING SEROUS LIQUID, INITIAL ASSESSMENT DONE, ALL SAFETY PRECAUTION MET, CALL LIGHT WITHIN REACH, WILL CONTINUE TO MONITOR.
[2020-09-13 08:33] LABS: BASOPHILS % (AUTO) 0.1 % (0.0-2.0); EOSINOPHILS % (AUTO) 0.1 % (0.0-4.0); HEMATOCRIT 31.1 % (36-48); HEMOGLOBIN 10.2 g/dL (12.0-16.0); LYMPHOCYTES # (AUTO) 0.1 K/uL (2.5-16.5); LYMPHOCYTES % (AUTO) 0.8 % (20.5-51.1); MAGNESIUM 2.5 mg/dL (1.8-2.4); MEAN CORPUSCULAR HEMOGLOBIN 28 pg (27-31); MEAN CORPUSCULAR HGB CONC 33 g/dL (33-37); MEAN CORPUSCULAR VOLUME 84.6 fL (80-94); MONOCYTES # (AUTO) 0.5 K/uL (0.8-1.0); MONOCYTES % (AUTO) 4.1 % (1.7-9.3); NEUTROPHILS # (AUTO) 12.5 K/uL (1.8-7.7); NEUTROPHILS % (AUTO) 94.9 % (42.2-75.2); PHOSPHORUS 1.6 mg/dL (2.5-4.9); PLATELET COUNT (AUTO) 184 K/uL (140-450); RED BLOOD CELL COUNT(AUTO) 3.67 MIL/uL (4.20-5.40); RED CELL DISTRIBUTION WIDTH 19.2 % (11.6-13.7); WHITE BLOOD COUNT (AUTO) 13.2 K/uL (4.8-10.8)
[2020-09-13 08:47] LABS: CREATININE 0.6 mg/dL (0.6-1.3)
--- NOTE | 2020-09-13 09:50 | NUR ---
DUE MEDICATION HEPARIN GIVEN, PT TOLERATED WELL, WILL CONTINUE TO MONITOR.
--- NOTE | 2020-09-13 11:54 | NUR ---
ENDORSED PT TO TELE NURSE ROLA MI, PT IN STABLE CONDITION.
--- NOTE | 2020-09-13 11:55 | NUR ---
RECEIVED REPORT FROM ICU NURSE FOR CONTINUITY OF CARE, PT ON 2L NC, NYA PICC LINE 2 LUMEN INFUSING TPN AT 50 AND LR AT 150, PT HAS lEJ 18G SALINE LOCK. PT HAS PARKER CATH IN PLACE, PT HAS L AND R URSULA DRAIN. SAFETY MEASURES IN PLACE, WILL CONTINUE TO MONITOR.
[2020-09-13 12:03] LABS: ANION GAP 13.4 (8-16); CARBON DIOXIDE 22.7 mmol/L (21-32)
--- NOTE | 2020-09-13 13:00 | NUR ---
NOTIFIED DR MORTON PT HAS POTASSIUM OF 3, RECEIVED VERBAL ORDER FOR K-RIDER 40 MEQ, INPUT ORDER AND WILL CARRY IT OUT.
--- NOTE | 2020-09-13 13:22 | NUR ---
ADMINISTERED SCHEDULED MEDS, MEDICATION EDUCATION PROVIDED. PT TOLERATED WELL. PT IS STABLE, WILL CONTINUE TO MONITOR
[2020-09-13] MEDS: KCL 20 MEQ/WATER INJ PREMIX 200 ML IV SCH ×2 (14:24→17:44)
--- NOTE | 2020-09-13 14:33 | NUR ---
ADMINISTERED SCHEDULED MEDICATION, MEDICATION EDUCATION PROVIDED. PT TOLERATED WELL. PT IS STABLE, WILL CONTINUE TO MONITOR
[2020-09-13] MEDS: MORPHINE SULFATE 2 MG/ML SYR IVP PRN (15:46)
--- NOTE | 2020-09-13 15:50 | NUR ---
ADMINISTERED MORPHINE FOR ABD PAIN 06/16, MEDICATION EDUCATION PROVIDED. PT NODDED UNDERSTANDING, PT TOLERATED WELL. PT IS STABLE, WILL CONTINUE TO MONITOR.
--- NOTE | 2020-09-13 17:49 | NUR ---
ADMINISTERED SECOND BAG OF POTASSIUM, MEDICATION EDUCATION PROVIDED. PT TOLERATED WELL. PT IS STABLE, WILL CONTINUE TO MONITOR.
--- NOTE | 2020-09-13 19:25 | NUR ---
ENDORSE PT TO NIGHT NURSE FOR CONTINUITY OF CARE, PT IS STABLE
--- NOTE | 2020-09-13 19:30 | NUR ---
RECEIVED REPORT FROM DAY HIWOT WALKER. PT RESTING IN BED ON 2L NC, NO S/S RESPIRATORY DISTRESS. HAS NYA PICC, INFUSING TPN AT 50ML/HR AND LR AT 150. HAS LEJ 18G, S.L. HAS LEFT AND RIGHT URSULA DRAIN IN PLACE, DRAINING SEROUS LIQUID. HAS PARKER CATH IN PLACE, DRAINING YELLOW URINE. S/P SX DRESSINGS TO ABD DRY INTACT. SAFETY MEASURES IN PLACE. CALL LIGHT WITHIN REACH. WILL CONTINUE TO MONITOR
[2020-09-13] MEDS: MULTIVITAMIN-12 10 ML in DEXTROSE 50% 600 ML, AMINO ACIDS 8.5% 500 ML, FAT EMULSION 20%... IV SCH ×4 (20:04)
[2020-09-13] MEDS: FLUCONAZOLE 200 MG/NS PREMIX 100 ML IV SCH (20:25)
--- NOTE | 2020-09-13 20:35 | NUR ---
ADMINISTERED SCHEDULED MEDICATIONS. TOLERATED WELL. WILL CONTINUE TO MONITOR
[2020-09-14] VITALS: BP 137/93
[2020-09-14] MEDS: BLOOD GLUCOSE MONITORING 1 DEV DEV MC SCH ×4 (00:05→18:00)
--- NOTE | 2020-09-14 03:06 | NUR ---
PT ASLEEP IN BED. NO S/S ACUTE DISTRESS NOTED. WILL CONTINUE TO MONITOR
[2020-09-14 04:00] VITALS: BP 117/73
[2020-09-14] MEDS: PIPERACILLIN/TAZOBACTAM 2.25 GM in DEXTROSE 5% 50 ML IV SCH ×3 (04:09→21:00)
--- NOTE | 2020-09-14 05:15 | NUR ---
CLEANED CHANGED REPOSITIONED PT, TOLERATED WELL. WILL CONTINUE TO MONITOR
[2020-09-14] MEDS: LACTATED RINGERS 1,000 ML IV SCH ×3 (05:32→18:08)
[2020-09-14 06:35] LABS: HEMATOCRIT 33.1 % (36-48); HEMOGLOBIN 10.6 g/dL (12.0-16.0); MEAN CORPUSCULAR HEMOGLOBIN 28 pg (27-31); MEAN CORPUSCULAR HGB CONC 32 g/dL (33-37); MEAN CORPUSCULAR VOLUME 86.6 fL (80-94); PLATELET COUNT (AUTO) 173 K/uL (140-450); RED BLOOD CELL COUNT(AUTO) 3.83 MIL/uL (4.20-5.40); WHITE BLOOD COUNT (AUTO) 15.1 K/uL (4.8-10.8)
--- NOTE | 2020-09-14 07:05 | NUR ---
PT ASLEEP IN BED. NO S/S ACUTE RESPIRATORY DISTRESS. WILL ENDORSE TO DAY RN FOR CONTINUITY OF CARE. PT IS IN STABLE CONDITION
[2020-09-14 07:16] LABS: MAGNESIUM 2.1 mg/dL (1.8-2.4); PHOSPHORUS 3.5 mg/dL (2.5-4.9)
[2020-09-14 07:24] LABS: ANION GAP 10.1 (8-16); CARBON DIOXIDE 24.7 mmol/L (21-32); CREATININE 0.5 mg/dL (0.6-1.3); POTASSIUM 4.8 mmol/L (3.5-5.1)
--- NOTE | 2020-09-14 07:25 | NUR ---
REC'D REPORT FROM ABSEILING INSTRUCTOR NURSE, PT ON R.A. A/Ox4, HAS R./L. URSULA DRAINS IN PLACE. DENIES PAIN AT THIS TIME. PT STABLE.
[2020-09-14 08:00] VITALS: BP 118/86
--- NOTE | 2020-09-14 08:08 | NUR ---
REC'D CRITICAL LAB VALUE FROM LAB, GLUCOSE 590, SENT MESSAGE TO DR. PYLE, ORDERS : 12UNITS HUMALOG. ADMINISTERED. PT TOLERATED PROCEDURE WELL.
--- NOTE | 2020-09-14 10:45 | NUR ---
CHANGED ABD PAD ON MID ABDOMEN INCISION, 16CM, NO REDNESS, ECCHYMOSIS, DRAINAGE, EDEMA. CHANGED DRESSING AROUND URSULA DRAINS. PT TOLERATED PROCEDURE WELL
[2020-09-14 12:00] VITALS: BP 136/88
[2020-09-14 15:00] LABS: LYMPHOCYTES % (MANUAL) 1 % (20-46); MONOCYTES % (MANUAL) 3 % (5-12)
--- NOTE | 2020-09-14 15:15 | NUR ---
CHANGED URSULA DRAIN DRESSING, LIGHTLY SATURATED, CHANGED ABD PAD, WAS SOILED. PT TOLERATED PROCEDURE WELL.
[2020-09-14 16:00] VITALS: BP 132/92
[2020-09-14] MEDS: FLUCONAZOLE 200 MG/NS PREMIX 100 ML IV SCH (19:00)
--- NOTE | 2020-09-14 19:30 | NUR ---
RECEIVED REPORT FROM BEBETO DAY SHIFT RN AT BEDSIDE FOR CONTINUITY OF CARE, PT IN STABLE CONDITION.
--- NOTE | 2020-09-14 19:49 | NUR ---
ENDORSED TO LASER PRINTING OPERATOR NURSE, PT STABLE, RESTING
[2020-09-14 20:00] VITALS: BP 135/90
[2020-09-14] MEDS: MULTIVITAMIN-12 10 ML in DEXTROSE 50% 600 ML, AMINO ACIDS 8.5% 500 ML, FAT EMULSION 20%... IV SCH ×4 (20:00)
--- NOTE | 2020-09-14 20:00 | NUR ---
PT ON 2 LITERS VIA N/C. SHE HAS A PORT ON RIGHT SUBCLAVIAN, INTACT AND FLUSHED PATENT. IT IS RUNNING LACTATED RINGERS AT 150. SHE ALSO HAS A RIGHT UPPER PICC LINE COMPLETED TPN AND 2ND PORT HAS FLAGYL HUNG AND RUNNING AT 100MLS/HR. TPN WAS REPLACED, PT WAS WAS TURNED, CHANGED AND REPOSITIONED IN BED. DRESSING FOR SACRAL REPLACED, ALSO DRESSING FOR ABDOMINAL SURGICAL WOUND REPLACED. ABDOMINAL SURGICAL WOUND IS CLOSED WITH 19 JULIANN AND INTACT. IT WAS CLEANED WITH NORMAL SALINE AND PAT DRY AND REDRESSED. PT HAS 2 URSULA DRAINS THE FIRST ONE HAS NO DRAINAGE. THE 2ND URSULA DRAIN EMPTIED 75 MLS. ALL FALLS PRECAUTIONS IN PLACE.
--- NOTE | 2020-09-14 21:40 | NUR ---
ZOSYN HUNG AND RUNNING AT 100MLS/HR ORDERED. PT ALSO GIVEN ORDERED HEPARIN. PT EDUCATION PROVIDED AT [address], PT VERBALIZED UNDERSTANDING. PT C/O OF WANTING WATER, PT SAID MD SAID IT WAS OK TO HAVE WATER AFTER MIDNIGHT. WILL DOUBLE CHECK WITH LEASE OUT WORKER MD. #2 URSULA DRAINED ANOTHER 100MLS. ORAL CARE PROVIDED.
--- NOTE | 2020-09-14 22:30 | NUR ---
RADIOLOGY CALLED AND SAID THAT UPPER GI COULD NOT BE DONE TOMORROW, BECAUSE THE ROOM IS UNDERGOING RECONSTRUCTION AT THIS TIME. WILL NOTIFY MD MOLDING MACHINE OPERATOR HELPER.
--- NOTE | 2020-09-14 23:00 | NUR ---
DAUGHTER SOURAV UPDATED ON MOTHER'S CONDITION.
[2020-09-14] MEDS: MORPHINE SULFATE 2 MG/ML SYR IVP PRN (23:49)
[2020-09-15] VITALS: BP 128/88
--- NOTE | 2020-09-15 | NUR ---
FINGERSTICK IS 70, NO HUMALOG COVERAGE NEEDED. PT RECEIVED MORPHINE FOR 8/10 BACK PAIN .
--- NOTE | 2020-09-15 00:30 | NUR ---
SPOKE WITH MD AND NOTIFIED HIM OF CANCEL UPPER GI PROCEDURE. ALSO NOTIFIED HIM OF PT WISHES FOR A DRINK OF WATER, PER MD OK FOR A VERY SMALL AMOUNT OF ICE CHIPS X1. ALSO NOTIFED MD OF DRAINAGE OF 2ND URSULA DRAIN. NO NEW ORDERS NOTED.
[2020-09-15] MEDS: LACTATED RINGERS 1,000 ML IV SCH ×4 (00:48→21:29)
--- NOTE | 2020-09-15 02:30 | NUR ---
PT WOKE UP AND WAS GIVEN A VERY SMALL AMOUNT OF ICE CHIPS X1 PER REQUEST. BAG OF LACTATED RINGERS REPLACED. WILL CONTINUE TO MONITOR PT FOR DISCOMFORT, DRAINAGE OF URSULA DRAINS ECT.
[2020-09-15 04:00] VITALS: BP 132/90
[2020-09-15] MEDS: PIPERACILLIN/TAZOBACTAM 2.25 GM in DEXTROSE 5% 50 ML IV SCH ×3 (05:00→21:29)
--- NOTE | 2020-09-15 06:15 | NUR ---
ZOSYN GIVEN ORDERED. FINGERSTICK IS 92. NO HUMALOG COVERAGE NEEDED. PT RESTING WITH EYES CLOSED. NO C/O VOICED. ALL FALLS PRECAUTIONS IN PLACE.
[2020-09-15 06:37] LABS: BASOPHILS % (AUTO) 0.1 % (0.0-2.0); HEMATOCRIT 33.6 % (36-48); LYMPHOCYTES # (AUTO) 0.2 K/uL (2.5-16.5); LYMPHOCYTES % (AUTO) 1.7 % (20.5-51.1); MEAN CORPUSCULAR HEMOGLOBIN 28 pg (27-31); MEAN CORPUSCULAR HGB CONC 33 g/dL (33-37); MEAN CORPUSCULAR VOLUME 85.2 fL (80-94); MONOCYTES # (AUTO) 0.8 K/uL (0.8-1.0); MONOCYTES % (AUTO) 6.7 % (1.7-9.3); NEUTROPHILS # (AUTO) 10.4 K/uL (1.8-7.7); NEUTROPHILS % (AUTO) 91.5 % (42.2-75.2); PLATELET COUNT (AUTO) 139 K/uL (140-450); RED BLOOD CELL COUNT(AUTO) 3.95 MIL/uL (4.20-5.40); RED CELL DISTRIBUTION WIDTH 18.9 % (11.6-13.7); WHITE BLOOD COUNT (AUTO) 11.4 K/uL (4.8-10.8)
[2020-09-15] MEDS: BLOOD GLUCOSE MONITORING 1 DEV DEV MC SCH ×4 (06:55→18:55)
--- NOTE | 2020-09-15 07:30 | NUR ---
RECEIVED ENDORSEMENT FROM HOUSE MOVER RN AT THIS TIME. PT IS STABLE RESTING IN BED.
[2020-09-15 07:36] LABS: ANION GAP 10.7 (8-16); CARBON DIOXIDE 27.9 mmol/L (21-32); CREATININE 0.4 mg/dL (0.6-1.3); POTASSIUM 3.6 mmol/L (3.5-5.1)
[2020-09-15 07:44] LABS: MAGNESIUM 2.1 mg/dL (1.8-2.4); PHOSPHORUS 2.3 mg/dL (2.5-4.9)
[2020-09-15 08:00] VITALS: BP 125/74
[2020-09-15] MEDS: MORPHINE SULFATE 2 MG/ML SYR IVP PRN ×3 (09:09→19:26)
--- NOTE | 2020-09-15 09:30 | NUR ---
PT IS AWAKE REQUESTING WATER. RECEIVED A PHONE CALL FROM RADIOLOGY STATING THEY ARE UNABLE TO DO GI SERIES DUE TO ROOM BEING REMODELED. DR. SIMMONS AND DR CALL NOTIFIED. PT REPORTING PAIN, PAIN MEDICATION GIVEN. PROVISION OF CARE PROVIDED. PT HAD EPISODE OF URINATION AND BM X 1. PT HAS URSULA DRAINS TO LEFT AND RIGHT ABDOMINAL AREA. BOTH DRESSING CHANGED DUE TO SATURATION. RIGHT SIDE NO DRAINING IN URSULA AND LEFT SIDE HAD 280ML OF SEROSANGUINEOUS DRAINING AND LEAKING FROM SITE. DR. CALL NOTIFIED AND PICTURE OF DRAINAGE SHARED. PT CONTINUES TO RECEIVING TPN AND IVF WITH NO ISSUES HAS PORT O CATH TO RIGHT CHEST AND RIGHT UPPER ARM PICC THAT IS INTACT AND PATENT. PT REFUSED HEPARIN DUE TO BEING IN PAIN AND NOT WANTING TO GET IT. EDUCATION PROVIDED. SAFETY MEASURES IN PLACE WILL CONTINUE WITH POC.
--- NOTE | 2020-09-15 11:30 | NUR ---
SPOKE WITH JAVAD BURTON REGARDING GI SERIES UNAVAILABLE PA ORDERED CT SCAN PT INFORMED AND OK WITH PROCEDURE. PT
[2020-09-15 12:00] VITALS: BP 124/76
--- NOTE | 2020-09-15 12:30 | NUR ---
BS 96 NO COVERAGE NEEDED.
--- NOTE | 2020-09-15 14:29 | NUR ---
09/15/20 RD FOLLOW UP COMPLETED PLEASE REFER TO NUTRITION ASSESSMENT UNDER CARE ACTIVITY FOR ESTIMATED NUTRITIONAL NEEDS. 1. CONTINUE TPN NECESSARY 2. WHEN/IF MEDICALLY APPROPRIATE ADVANCE TO CLEAR LIQUID DIET, ADVANCE TOLERATED TO REGULAR DIET 3. F/U 2-3 DAYS; HIGH RISK SHANE ENG, RD
--- NOTE | 2020-09-15 14:37 | NUR ---
PT REPORTED PAIN 10/10 MORPHINE 2 MG GIVEN PER MD ORDER PRIOR TO ADMINISTRATION PT AND FAMILY REQUEST TO GET PATIENT UP AND AMBULATE. PT WAS ASSISTED TO GETTING UP SAT UP FOR A FEW MIN AND STOOD NEXT TO BED. PT STATED SHE HAD PAIN AND ASSISTED BACK T0 BED. CALL LIGHT WITHIN REACH. FAMILY AT WINDOW.
[2020-09-15 16:00] VITALS: BP 128/82
--- NOTE | 2020-09-15 16:50 | NUR ---
BS 97 NO COVERAGE NEEDED. PROVISION OF CARE PROVIDED.
--- NOTE | 2020-09-15 18:50 | NUR ---
PT RETURNED FROM CT AT 1830 PT ASSISTED TO BED AND DRESSINGS CHANGED DUE TO SATURATION. PT TOOK OUT TOTAL OF 1000 TO LEFT URSULA DRAIN AND 10 TO RIGHT URSULA DRAIN. DR. CALL NOTIFIED. AWAITING CT RESULTS.
[2020-09-15] MEDS: FLUCONAZOLE 200 MG/NS PREMIX 100 ML IV SCH (19:18)
--- NOTE | 2020-09-15 19:40 | NUR ---
PT ENDORSED TO BATCH STILL OPERATOR RN FOR CONTINUITY OF CARE. PT STABLE CONTINUES TO RECEIVE TPN AT 50ML/HR LR AT 150 AND CURRENTLY RECEIVING IVPB. REMAINS ON 2L NC. PT GIVEN MORPHINE 2MG DUE TO PAIN,
--- NOTE | 2020-09-15 19:45 | NUR ---
RECEIVED PATIENT FROM AM SHIFT NURSE FOR CONTINUITY OF CARE. ABLE TO MAKE NEEDS KNOWN. RESPIRATIONS EVEN, UNLABORED. CONTINUES ON O2 2L VIA NC, O2SAT 99%. NO S/S RESPIRATORY DISTRESS. SKIN WARM, DRY. RIGHT UPPER ARM PICC NOTED, INFUSING TPN WELL. RIGHT CHEST PORT NOTED. NO C/O PAIN. NO S/S ACUTE DISTRESS. ABDOMEN SOFT, NONTENDER, NONDISTENDED. BOWEL SOUNDS ACTIVE X4 QUADRANTS. BILATERAL ABDOMINAL URSULA DRAINS NOTED. PATIENT IS INCONTINENT OF B/B. PLAN OF CARE DISCUSSED. CALL LIGHT WITHIN REACH. ISOLATION PRECAUTIONS OBSERVED. SAFETY PRECAUTIONS IN PLACE. FREQUENT ROUNDS BY ALL STAFF
[2020-09-15 20:00] VITALS: BP 119/85
[2020-09-15] MEDS: MULTIVITAMIN-12 10 ML in DEXTROSE 50% 600 ML, AMINO ACIDS 8.5% 500 ML, FAT EMULSION 20%... IV SCH ×4 (20:00)
--- NOTE | 2020-09-15 21:30 | NUR ---
DUE MEDS GIVEN. PATIENT RESTING COMFORTABLY IN BED. NO S/S ACUTE DISTRESS. CALL LIGHT WITHIN REACH. ISOLATION PRECAUTIONS OBSERVED. SAFETY PRECAUTIONS IN PLACE. FREQUENT ROUNDS BY ALL STAFF
--- NOTE | 2020-09-15 23:00 | NUR ---
PATIENT TURNED AND REPOSITIONED TO MAINTAIN SKIN INTEGRITY AND FOR COMFORT. NO S/S ACUTE DISTRESS. CALL LIGHT WITHIN REACH. ISOLATION PRECAUTIONS OBSERVED. SAFETY PRECAUTIONS IN PLACE. FREQUENT ROUNDS BY ALL STAFF
[2020-09-16] VITALS: BP 120/76
[2020-09-16] MEDS: BLOOD GLUCOSE MONITORING 1 DEV DEV MC SCH ×4 (00:42→17:40)
--- NOTE | 2020-09-16 01:00 | NUR ---
PER MD, URSULA DRAINS WERE NOT COLLAPSED TO PROVIDE SUCTION. PATIENT IN NO DISTRESS. CALL LIGHT WITHIN REACH. ISOLATION PRECAUTIONS OBSERVED. SAFETY PRECAUTIONS IN PLACE. FREQUENT ROUNDS BY ALL STAFF
--- NOTE | 2020-09-16 03:00 | NUR ---
INCONTINENT CARE RENDERED WITH CABLE INSPECTOR AT BEDSIDE.
[2020-09-16] MEDS: LACTATED RINGERS 1,000 ML IV SCH ×4 (03:28→22:19)
[2020-09-16 04:00] VITALS: BP 132/72
[2020-09-16] MEDS: MORPHINE SULFATE 2 MG/ML SYR IVP PRN ×4 (04:05→22:19)
[2020-09-16] MEDS: PIPERACILLIN/TAZOBACTAM 2.25 GM in DEXTROSE 5% 50 ML IV SCH ×3 (05:00→21:45)
--- NOTE | 2020-09-16 05:00 | NUR ---
PATIENT IS ASLEEP. NO S/S ACUTE DISTRESS. CALL LIGHT WITHIN REACH. ISOLATION PRECAUTIONS OBSERVED. SAFETY PRECAUTIONS IN PLACE. FREQUENT ROUNDS BY ALL STAFF
[2020-09-16 06:37] LABS: BASOPHILS # (AUTO) 0.1 K/uL (0.00-0.22); BASOPHILS % (AUTO) 0.4 % (0.0-2.0); HEMATOCRIT 32.1 % (36-48); HEMOGLOBIN 10.5 g/dL (12.0-16.0); LYMPHOCYTES # (AUTO) 0.2 K/uL (2.5-16.5); LYMPHOCYTES % (AUTO) 1.7 % (20.5-51.1); MEAN CORPUSCULAR HEMOGLOBIN 28 pg (27-31); MEAN CORPUSCULAR HGB CONC 33 g/dL (33-37); MEAN CORPUSCULAR VOLUME 85.5 fL (80-94); MONOCYTES # (AUTO) 0.7 K/uL (0.8-1.0); MONOCYTES % (AUTO) 5.8 % (1.7-9.3); NEUTROPHILS # (AUTO) 10.9 K/uL (1.8-7.7); NEUTROPHILS % (AUTO) 92.1 % (42.2-75.2); PLATELET COUNT (AUTO) 126 K/uL (140-450); RED BLOOD CELL COUNT(AUTO) 3.76 MIL/uL (4.20-5.40); RED CELL DISTRIBUTION WIDTH 18.7 % (11.6-13.7); WHITE BLOOD COUNT (AUTO) 11.8 K/uL (4.8-10.8)
--- NOTE | 2020-09-16 07:25 | NUR ---
ENDORSED PATIENT TO AM SHIFT NURSE FOR CONTINUITY OF CARE.
[2020-09-16 07:42] LABS: ANION GAP 10.8 (8-16); CARBON DIOXIDE 25.6 mmol/L (21-32); CREATININE 0.4 mg/dL (0.6-1.3); POTASSIUM 3.4 mmol/L (3.5-5.1)
[2020-09-16 07:53] LABS: MAGNESIUM 1.4 mg/dL (1.8-2.4); PHOSPHORUS 2.8 mg/dL (2.5-4.9)
--- NOTE | 2020-09-16 10:15 | NUR ---
HUNG NEW BAG OF IVF LR. HEPARIN GIVEN. PATIENT STATED THAT ABD AND LOWER BACK PAIN 04/16. WILL GIVE PAIN MED. ASSISTED THE PATIENT TO MOVE HER LEGS, PATIENT IS WEAK, CANNOT REACH HER LEGS. GENERALIZED WEAKNESS.
[2020-09-16] MEDS: MAG SULF 2000 MG/WATER PREMIX 50 ML IV PRN (10:24)
--- NOTE | 2020-09-16 10:30 | NUR ---
MORPHINE GIVEN VIA IVP FOR ABD AND LOWER BACK PAIN, 04/16. MAGNESIUM GIVEN FOR MG LEVEL 1.4. EDUCATION PROVIDED. PATIENT VERBALIZED UNDERSTANDING. SAFETY MEASURES IN PLACE, CALL LIGHT WITHIN REACH. WILL CONTINUE TO MONITOR.
[2020-09-16] MEDS ORDERED: POTASSIUM CHLORIDE 40 MEQ, LIDOCAINE MPF 1% 25 MG in NACL 0.9% 250 ML IV SCH (11:00)
--- NOTE | 2020-09-16 11:57 | NUR ---
ACCUCHECK DONE. BS 95, NO INSULIN COVERAGE NEEDED. SAFETY MEASURES IN PLACE, WILL CONTINUE TO MONITOR.
[2020-09-16 16:00] VITALS: BP 119/81
--- NOTE | 2020-09-16 16:30 | NUR ---
MORPHINE GIVEN VIA IVP FOR ABD AND LOWER BACK PAIN 04/16. O2 SAT 99% WITH 2L NC. WILL CONTINUE TO MONITOR.
[2020-09-16] MEDS: FLUCONAZOLE 200 MG/NS PREMIX 100 ML IV SCH (18:24)
--- NOTE | 2020-09-16 18:28 | NUR ---
SCHEDULED FLUCONAZOLE GIVEN VIA IVPB. EDUCATION PROVIDED. VERBALIZED UNDERSTANDING. CHANGED GOWN AND LINEN DUE TO WET. PATIENT KEPT COMFORTABLE. SAFETY MEASURES IN PLACE, WILL CONTINUE TO MONITOR.
--- NOTE | 2020-09-16 19:35 | NUR ---
ENDORSED PATIENT TO YARD STOCKER RN FOR CONTINUITY OF CARE. PATIENT IN STABLE CONDITION.
--- NOTE | 2020-09-16 19:36 | NUR ---
RECEIVED REPORT FROM AM SHIFT NURSE. PT IN BED RESTING. AOX4, ABLE TO MAKE NEEDS KNOWN. RESPIRATIONS EVEN, UNLABORED TO O2 2LPM/NC. NO S/SX OF DISTRESS NOTED. SKIN WARM, AND DRY. PT WITH NYA PICC LINE IN PLACE IVF AND TPN INFUSING WELL. PT ALSO WITH RIGHT CHEST PORT NOTED, PATENT AND INTACT. ABDOMEN SOFT, NONTENDER, NONDISTENDED. PT S/P SX ON 09/11 PT WITH MIDLINE ABDOMINAL INCISION AND BILATERAL ABDOMINAL URSULA DRAINS NOTED. PATIENT IS INCONTINENT OF BOWEL AND BLADDER. PT DENIES ANY PAIN OR DISCOMFORT AT THIS TIME. NO REQUESTS MADE. CALL LIGHT WITHIN REACH. SAFETY MEASURES IN PLACE. WILL CONTINUE TO MONITOR.
[2020-09-16 20:00] VITALS: BP 126/83
[2020-09-16] MEDS: MULTIVITAMIN-12 10 ML in DEXTROSE 50% 600 ML, AMINO ACIDS 8.5% 500 ML, FAT EMULSION 20%... IV SCH ×4 (21:44)
--- NOTE | 2020-09-16 21:45 | NUR ---
VS STABLE. SCHEDULED MEDS GIVEN ORDERED. PT DENIES ANY PAIN OR DISTRESS AT THIS TIME. PT TURNED TO SIDE. SAFETY MEASURES IN PLACE. CALL LIGHT WITHIN REACH. WILL CONTINUE TO MONITOR.
--- NOTE | 2020-09-16 22:19 | NUR ---
PT COMPLAINING OF PAIN 03/16. PRN MORPHINE GIVEN ORDERED. WILL CONTINUE TO MONITOR.
[2020-09-17] VITALS: BP 117/79
--- NOTE | 2020-09-17 00:01 | NUR ---
VS STABLE. PT IN BED RESTING. PERINEAL CARE DONE WITH ACETYLENE CYLINDER PACKING MIXER. PT NOT IN DISTRESS. DENIES ANY PAIN OR DISCOMFORT. CALL LIGHT WITHIN REACH. WILL CONTINUE TO MONITOR.
[2020-09-17] MEDS: BLOOD GLUCOSE MONITORING 1 DEV DEV MC SCH ×4 (00:05→17:19)
--- NOTE | 2020-09-17 02:24 | NUR ---
PT ASLEEP. NO S/SX OF DISTRESS NOTED. VISIBLE CHEST RISE AND FALL NOTED. PT KEPT COMFORTABLE. SAFETY MEASURES IN PLACE. CALL LIGHT WITHIN REACH. WILL CONTINUE TO MONITOR.
[2020-09-17 04:00] VITALS: BP 118/79
--- NOTE | 2020-09-17 04:11 | NUR ---
VS STABLE. PT RESTING IN BED. PERINEAL CARE DONE WITH SOLVENT PROCESS EXTRACTOR OPERATOR. PT ASSISTED WITH STRETCHING HER FEET AFTER. PT TURNED AND REPOSITIONED. NO REQUESTS MADE AT THIS TIME. CALL LIGHT WITHIN REACH. WILL CONTINUE TO MONITOR.
[2020-09-17] MEDS: PIPERACILLIN/TAZOBACTAM 2.25 GM in DEXTROSE 5% 50 ML IV SCH ×3 (05:21→21:37)
[2020-09-17] MEDS: MORPHINE SULFATE 2 MG/ML SYR IVP PRN ×2 (05:33→20:11)
--- NOTE | 2020-09-17 05:33 | NUR ---
PT COMPLAINING OF PAIN 03/16. PRN MORPHINE GIVEN ORDERED. WILL CONTINUE TO MONITOR.
[2020-09-17 06:34] LABS: BASOPHILS % (AUTO) 0.2 % (0.0-2.0); EOSINOPHILS % (AUTO) 0.1 % (0.0-4.0); HEMOGLOBIN 10.7 g/dL (12.0-16.0); LYMPHOCYTES # (AUTO) 0.2 K/uL (2.5-16.5); LYMPHOCYTES % (AUTO) 1.5 % (20.5-51.1); MEAN CORPUSCULAR HEMOGLOBIN 28 pg (27-31); MEAN CORPUSCULAR HGB CONC 33 g/dL (33-37); MEAN CORPUSCULAR VOLUME 85.5 fL (80-94); MONOCYTES # (AUTO) 0.5 K/uL (0.8-1.0); MONOCYTES % (AUTO) 4.2 % (1.7-9.3); NEUTROPHILS # (AUTO) 11.6 K/uL (1.8-7.7); PLATELET COUNT (AUTO) 148 K/uL (140-450); RED BLOOD CELL COUNT(AUTO) 3.86 MIL/uL (4.20-5.40); RED CELL DISTRIBUTION WIDTH 19.1 % (11.6-13.7); WHITE BLOOD COUNT (AUTO) 12.4 K/uL (4.8-10.8)
[2020-09-17] MEDS: LACTATED RINGERS 1,000 ML IV SCH ×3 (06:36→20:02)
[2020-09-17 07:13] LABS: ANION GAP 10.4 (8-16); CARBON DIOXIDE 25.9 mmol/L (21-32); CREATININE 0.3 mg/dL (0.6-1.3); POTASSIUM 4.3 mmol/L (3.5-5.1)
[2020-09-17 07:17] LABS: MAGNESIUM 2.1 mg/dL (1.8-2.4); PHOSPHORUS 3.4 mg/dL (2.5-4.9)
--- NOTE | 2020-09-17 07:59 | NUR ---
RECEIVED PATIENT IN BED RESTING COMFORTABLY. PATIENT PRESENTS CALM AND COOPERATIVE, ABLE TO EXPRESS NEEDS. RESPIRATIONS ARE NON-LABORED. SKIN IS CLEAN, WARM AND DRY TO TOUCH. IV ACCESS IS PATENT, DRY AND INTACT. BED IS LOCKED IN LOWEST POSITION, CALL LIGHT IN REACH. NURSE WILL CONTINUE CARE AND MONITOR FOR CHANGES IN STATUS.
[2020-09-17 12:00] VITALS: BP 117/75
--- NOTE | 2020-09-17 12:33 | NUR ---
PATIENT RESTING COMFORTABLY, NO C/ O PAIN OR DISCOMFORT. RESPIRATIONS ARE NON-LABORED. SKIN IS CLEAN,. WARM AND DRY TO TOUCH. IV ACCESS IS PATENT, DRY AND INTACT. BED IS LOCKED IN LOWEST POSITION, CALL LIGHT IN REACH. NURSE WILL CONTINUE TO MONITOR FOR CHANGES IN STATUS.
--- NOTE | 2020-09-17 15:34 | NUR ---
PATIENT RESTING COMFORTABLY, NO C/O PAIN OR DISCOMFORT. RESPIRATIONS ARE NON-LABORED. SKIN IS CLEAN, WARM AND DRY TO TOUCH. IV ACCESS IS PATENT, DRY INTACT, NO S/SX OF INFILTRATION. BED IS LOCKED IN LOWEST POSITION, CALL LIGHT IN REACH. NURSE WILL CONTINUE TO MONITOR FOR CHANGES IN STATUS.
[2020-09-17 16:00] VITALS: BP 127/88
--- NOTE | 2020-09-17 18:57 | NUR ---
Patient resting comfortably, no c/o pain or discomfort. Respirations are non-labored. skin is clean, warm and dry to touch. IV access is patent, dry and intact. bed is locked in lowest position, patient endorsed to shift manager nurse for continued care..
--- NOTE | 2020-09-17 19:30 | NUR ---
RECEIVED REPORT FROM AM SHIFT NURSE. PT IN BED RESTING. AOX4, ABLE TO MAKE NEEDS KNOWN. RESPIRATIONS EVEN, UNLABORED TO O2 2LPM/NC. NO S/SX OF DISTRESS NOTED. SKIN WARM, AND DRY. PT WITH NYA PICC LINE IN PLACE IVF AND TPN INFUSING WELL. PT ALSO WITH RIGHT CHEST PORT NOTED, PATENT AND INTACT. ABDOMEN SOFT, NONTENDER, NONDISTENDED. PT S/P SX ON 09/12 PT WITH MIDLINE ABDOMINAL INCISION AND BILATERAL ABDOMINAL URSULA DRAINS NOTED. PATIENT IS INCONTINENT OF BOWEL AND BLADDER. PT DENIES ANY PAIN OR DISCOMFORT AT THIS TIME. NO REQUESTS MADE. CALL LIGHT WITHIN REACH. SAFETY MEASURES IN PLACE. WILL CONTINUE TO MONITOR.
[2020-09-17 20:00] VITALS: BP 134/75
[2020-09-17] MEDS: MULTIVITAMIN-12 10 ML in DEXTROSE 50% 600 ML, AMINO ACIDS 8.5% 500 ML, FAT EMULSION 20%... IV SCH ×4 (20:00)
[2020-09-17] MEDS: FLUCONAZOLE 200 MG/NS PREMIX 100 ML IV SCH (20:02)
[2020-09-17] MEDS: FAMOTIDINE IV SCH ×5 (20:03)
[2020-09-17] MEDS: [UNRECOGNIZED DRUG - OTHER] IV SCH ×5 (20:03)
[2020-09-17] MEDS: DEXTROSE IV SCH ×5 (20:03)
[2020-09-17] MEDS: MULTIVITAMIN IV SCH ×5 (20:03)
--- NOTE | 2020-09-17 20:04 | NUR ---
RECEIVED REPORT FROM AM SHIFT NURSE. PT IN BED RESTING. AOX4, ABLE TO MAKE NEEDS KNOWN. RESPIRATIONS EVEN, UNLABORED TO O2 2LPM/NC. NO S/SX OF DISTRESS NOTED. SKIN WARM, AND DRY. PT WITH NYA PICC LINE IN PLACE IVF AND TPN INFUSING WELL. PT ALSO WITH RIGHT CHEST PORT NOTED, PATENT AND INTACT. ABDOMEN SOFT, NONTENDER, NONDISTENDED. PT S/P SX ON 09/12 PT WITH MIDLINE ABDOMINAL INCISION AND BILATERAL ABDOMINAL URSULA DRAINS NOTED. PATIENT IS INCONTINENT OF BOWEL AND BLADDER. PT DENIES ANY PAIN OR DISCOMFORT AT THIS TIME. NO REQUESTS MADE. CALL LIGHT WITHIN REACH. SAFETY MEASURES IN PLACE. WILL CONTINUE TO MONITOR. Addendum: 09/18/20 at 0158 by Solomon Castaneda RN TIME SHOULD BE 1930
--- NOTE | 2020-09-17 20:04 | NUR ---
VS STABLE. SCHEDULED MEDS GIVEN ORDERED. PT REPOSITIONED. WILL CONTINUE TO MONITOR.
--- NOTE | 2020-09-17 20:11 | NUR ---
PT COMPLAINING OF PAIN 03/16. PRN PAIN MEDICATION GIVEN ORDERED. WILL CONTINUE TO MONITOR.
--- NOTE | 2020-09-17 22:14 | NUR ---
PT ASLEEP. NO S/SX OF PAIN OR DISCOMFORT NOTED. VISIBLE CHEST RISE AND FALL NOTED. SAFETY MEASURES IN PLACE. CALL LIGHT WITHIN REACH. WILL CONTINUE TO MONITOR.
[2020-09-18] VITALS: BP 137/92
[2020-09-18] MEDS: BLOOD GLUCOSE MONITORING 1 DEV DEV MC SCH ×4 (00:09→18:46)
[2020-09-18] MEDS: MORPHINE SULFATE 2 MG/ML SYR IVP PRN ×4 (00:20→20:35)
--- NOTE | 2020-09-18 00:20 | NUR ---
VS STABLE. PT IN BED, COMPLAINING OF PAIN 03/16. PRN PAIN MEDICATION GIVEN ORDERED. WILL CONTINUE TO MONITOR.
--- NOTE | 2020-09-18 02:01 | NUR ---
PT ASLEEP. NO S/X OF PAIN OR DISCOMFORT NOTED. VISIBLE CHEST RISE AND FALL NOTED. PT KEPT COMFORTABLE AND SAFE. CALL LIGHT WITHIN REACH. WILL CONTINUE TO MONITOR.
[2020-09-18] MEDS: LACTATED RINGERS 1,000 ML IV SCH ×4 (02:08→21:07)
[2020-09-18 04:00] VITALS: BP 138/98
--- NOTE | 2020-09-18 04:42 | NUR ---
VS STABLE. PERINEAL CARE DONE WITH PRODUCTION LINE ASSEMBLER. PT TOLERATED CARE WELL. O2 IN PLACE. NO S/SX OF DISTRESS NOTED. PT KEPT COMFORTABLE. SAFETY MEASURES IN PLACE. CALL LIGHT WITHIN REACH. WILL CONTINUE TO MONITOR.
--- NOTE | 2020-09-18 05:46 | NUR ---
PT COMPLAINING OF PAIN 03/16. PRN MORPHINE GIVEN ORDERED. WILL CONTINUE TO MONITOR
[2020-09-18] MEDS: PIPERACILLIN/TAZOBACTAM 2.25 GM in DEXTROSE 5% 50 ML IV SCH ×3 (05:48→20:43)
[2020-09-18 06:32] LABS: BASOPHILS # (AUTO) 0.1 K/uL (0.00-0.22); BASOPHILS % (AUTO) 0.4 % (0.0-2.0); EOSINOPHILS % (AUTO) 0.3 % (0.0-4.0); HEMATOCRIT 32.3 % (36-48); HEMOGLOBIN 10.5 g/dL (12.0-16.0); LYMPHOCYTES # (AUTO) 0.2 K/uL (2.5-16.5); LYMPHOCYTES % (AUTO) 1.6 % (20.5-51.1); MEAN CORPUSCULAR HEMOGLOBIN 28 pg (27-31); MEAN CORPUSCULAR HGB CONC 33 g/dL (33-37); MEAN CORPUSCULAR VOLUME 85.8 fL (80-94); MONOCYTES # (AUTO) 0.6 K/uL (0.8-1.0); MONOCYTES % (AUTO) 4.4 % (1.7-9.3); NEUTROPHILS # (AUTO) 12.7 K/uL (1.8-7.7); NEUTROPHILS % (AUTO) 93.3 % (42.2-75.2); PLATELET COUNT (AUTO) 164 K/uL (140-450); RED BLOOD CELL COUNT(AUTO) 3.76 MIL/uL (4.20-5.40); RED CELL DISTRIBUTION WIDTH 18.9 % (11.6-13.7); WHITE BLOOD COUNT (AUTO) 13.6 K/uL (4.8-10.8)
[2020-09-18 06:44] LABS: MAGNESIUM 1.5 mg/dL (1.8-2.4); PHOSPHORUS 3.8 mg/dL (2.5-4.9)
--- NOTE | 2020-09-18 07:45 | NUR ---
RECEIVED REPORT FROM NIGHT NURSE FOR CONTINUITY OF CARE. PT IS STABLE. PT HAS NYA INFUSING TPN AT 50, LR AT 150, RU CHEST PORT SALINE LOCK. PT HAS MID ABD STITCHES WITH L &R URSULA DRAIN. PT ON 2L VIA NC. SAFETY MEASURES IN PLACE, WILL CONTINUE TO MONITOR
--- NOTE | 2020-09-18 07:45 | NUR ---
ENDORSED TO DAY SHIFT NURSE FOR CONTINUITY OF CARE
[2020-09-18 08:00] VITALS: BP 130/88
[2020-09-18 08:52] LABS: ANION GAP 12.1 (8-16); CARBON DIOXIDE 25.3 mmol/L (21-32); CREATININE 0.5 mg/dL (0.6-1.3); POTASSIUM 4.4 mmol/L (3.5-5.1)
[2020-09-18] MEDS: MAG SULF 2000 MG/WATER PREMIX 50 ML IV PRN (10:18)
--- NOTE | 2020-09-18 10:41 | NUR ---
ADMINISTERED SCHEDULED MEDICATION, MORPHINE FOR PAIN 03/16, MAGNESIUM SULFATE FOR MAG OF 1.5, MEDICATION EDUCTION PROVIDED. PT TOLERATED WELL. PT IS STABLE, WILL CONTINUE TO MONITOR.
[2020-09-18 12:00] VITALS: BP 125/83
--- NOTE | 2020-09-18 14:09 | NUR ---
ADMINISTERED SCHEDULED MEDICATION, MEDICATION EDUCATION PROVIDED. PT TOLERATED WELL. PT IS STABLE, WILL CONTINUE TO MONITOR.
[2020-09-18 16:00] VITALS: BP 139/90
[2020-09-18] MEDS ORDERED: HYDR-5122 PO (16:12)
[2020-09-18] MEDS ORDERED: AMOX-999 PO (16:12)
--- NOTE | 2020-09-18 16:16 | NUR ---
09/18/20 RD FOLLOW UP COMPLETED PLEASE REFER TO NUTRITION ASSESSMENT UNDER CARE ACTIVITY FOR ESTIMATED NUTRITIONAL NEEDS. 1. CONTINUE SOFT DIET TOLERATED 2. RECOMMEND ENSURE TID 3. CONTINUE TPN PER PHARMACY 4. ENCOURAGE PO INTAKE OVER 50% 5. RD TO FOLLOW-UP 2-3 DAYS, HIGH RISK REBEKAH FLORES RD
--- NOTE | 2020-09-18 18:17 | NUR ---
SPOKE WIT PT SISTER, ROSALIE, PER HER, THE FAMILY IS NOT READY TO HAVE THE PT DISCHARGED. THEY DID NOT AGREE ON THE HOME HEALTH AND THEY ARE NOT GOING TO ACCEPT THE FIRST ACCEPTING HOME HEALTH. THEY STATED THEIR FAMILY CAN NOT BE DISCHARGED AND SHE WANTS THE DOCTOR TO CALL HER AND ADVICE HER ON WHAT TO DO. WILL NOTIFY THE RESIDENT.
[2020-09-18] MEDS: FLUCONAZOLE 200 MG/NS PREMIX 100 ML IV SCH (18:37)
--- NOTE | 2020-09-18 18:47 | NUR ---
ADMINISTERED SCHEDULED MEDICATION, MEDICATION EDUCATION PROVIDED. PT TOLERATED WELL. PT IS STABLE, WILL CONTINUE TO MONITOR.
--- NOTE | 2020-09-18 19:25 | NUR ---
ENDORSE PT TO NIGHT NURSE FOR CONTINUITY OF CARE. RECEIVED TORB FROM DR LOCK TO RENEW PT'S PAIN MED OF MORPHINE.
--- NOTE | 2020-09-18 19:25 | NUR ---
RECEIVED BEDSIDE REPORT FROM DAY SHIFT NURSE FOR CONTINUITY OF CARE. PT IS AWAKE AND ALERT. ON 2L O2 NC WITH BREATHING UNLABORED. PT HAS AN ABDOMINAL SURGICAL WOUND DOWN THE CENTER. [address] RIGHT UPPER CHEST CATH PORT AND RIGHT UPPER ARM PICC LINE. PLAN OF CARE DISCUSSED. PT IS STABLE AT THIS TIME. WILL CONTINUE TO MONITOR.
[2020-09-18 20:00] VITALS: BP 136/87
[2020-09-18] MEDS ORDERED: [UNRECOGNIZED DRUG - OTHER] IV SCH ×4 (20:00)
[2020-09-18] MEDS: FAMOTIDINE IV SCH ×10 (20:00→20:46)
[2020-09-18] MEDS: DEXTROSE IV SCH ×10 (20:00→20:46)
[2020-09-18] MEDS ORDERED: FAMOTIDINE IV SCH ×4 (20:00)
[2020-09-18] MEDS: MULTIVITAMIN IV SCH ×10 (20:00→20:46)
[2020-09-18] MEDS: [UNRECOGNIZED DRUG - OTHER] IV SCH ×10 (20:00→20:46)
[2020-09-18] MEDS ORDERED: AMINO ACIDS IV SCH ×4 (20:00)
[2020-09-18] MEDS ORDERED: DEXTROSE IV SCH ×4 (20:00)
--- NOTE | 2020-09-18 20:35 | NUR ---
PT STATED SHE HAD PAIN AT A SCALE OF 10/10 IN THE ABDOMEN. ACHING IN CHARACTERISTIC. PT WAS GIVEN MORPHINE FOR PAIN. BP WAS 136/87 PRIOR TO ADMINISTRATION.
--- NOTE | 2020-09-18 21:30 | NUR ---
PT IS ASLEEP IN SEMI FOWLERS POSITION. URSULA DRAIN ON THE RIGHT HAS LESS THAN 5 ML OF SEROSANGUINEOUS. URSULA DRAIN ON THE LEFT WAS EMPTIED WITH 150 ML OF YELLOW DRAINAGE. PT'S CHUCKS ARE DRY AND IN PLACE. PT DOES NOT APPEAR TO BE IN ANY DISTRESS. PICC LINE IS INFUSING FLUIDS ORDERED. TPN IS INFUSING WELL THROUGH PICC LINE.
--- NOTE | 2020-09-18 23:30 | NUR ---
PT IS AWAKE AND ALERT. NO DISTRESS NOTED. ON 2L O2 NC WITH BREATHING UNLABORED. FLUIDS ARE INFUSING ORDERED. PICC LINE IS PATENT. URSULA DRAIN ON THE LEFT WAS EMPTIED WITH 100 ML OF YELLOW FLUID. PT IS STABLE.
[2020-09-19] VITALS: BP 143/86
--- NOTE | 2020-09-19 | NUR ---
BS READING IS 110, NO INSULIN COVERAGE NEEDED.
[2020-09-19] MEDS: MORPHINE SULFATE 2 MG/ML SYR IVP PRN ×5 (01:09→22:45)
--- NOTE | 2020-09-19 01:09 | NUR ---
PT STATES SHE HAS PAIN IN THE ABDOMEN, 10/10. ACHING IS CHARACTERISTIC. BP IS 143/86 PRIOR TO ADMINISTRATION. WILL CONTINUE TO MONITOR.
--- NOTE | 2020-09-19 03:00 | NUR ---
PT IS SLEEPING. NO DISTRESS NOTED. ON 2L O2 NC WITH BREATHING UNLABORED. NO PAIN AT THIS TIME. WILL CONTINUE TO MONITOR.
[2020-09-19 04:00] VITALS: BP 142/89
[2020-09-19] MEDS: LACTATED RINGERS 1,000 ML IV SCH ×3 (04:48→15:51)
--- NOTE | 2020-09-19 05:00 | NUR ---
ASKED PT IF SHE WOULD LIKE SOMETHING TO EAT. PT STATED THAT SHE WAS NOT HUNGRY AT THIS TIME. PT WAS GIVEN WATER. PT IS STABLE.
[2020-09-19] MEDS: PIPERACILLIN/TAZOBACTAM 2.25 GM in DEXTROSE 5% 50 ML IV SCH ×3 (05:30→22:00)
[2020-09-19] MEDS: BLOOD GLUCOSE MONITORING 1 DEV DEV MC SCH ×5 (05:43→23:00)
[2020-09-19 06:11] LABS: BASOPHILS # (AUTO) 0.2 K/uL (0.00-0.22); BASOPHILS % (AUTO) 1.6 % (0.0-2.0); EOSINOPHILS % (AUTO) 0.1 % (0.0-4.0); HEMATOCRIT 32.5 % (36-48); HEMOGLOBIN 10.5 g/dL (12.0-16.0); LYMPHOCYTES # (AUTO) 0.3 K/uL (2.5-16.5); LYMPHOCYTES % (AUTO) 1.9 % (20.5-51.1); MEAN CORPUSCULAR HEMOGLOBIN 28 pg (27-31); MEAN CORPUSCULAR HGB CONC 32 g/dL (33-37); MEAN CORPUSCULAR VOLUME 86.4 fL (80-94); MONOCYTES # (AUTO) 0.7 K/uL (0.8-1.0); MONOCYTES % (AUTO) 4.3 % (1.7-9.3); NEUTROPHILS # (AUTO) 14.1 K/uL (1.8-7.7); NEUTROPHILS % (AUTO) 92.1 % (42.2-75.2); PLATELET COUNT (AUTO) 199 K/uL (140-450); RED BLOOD CELL COUNT(AUTO) 3.77 MIL/uL (4.20-5.40); RED CELL DISTRIBUTION WIDTH 18.8 % (11.6-13.7); WHITE BLOOD COUNT (AUTO) 15.3 K/uL (4.8-10.8)
--- NOTE | 2020-09-19 06:30 | NUR ---
REPORTED TO DR. CALL URSULA DRAINAGE OUTPUT OF 550 ML, YELLOW LIQUID. DR. CALL SAID TO DRAIN THE URSULA DRAIN Q8H. WILL ENDORSE TO NEXT SHIFT.
[2020-09-19 06:39] LABS: CREATININE 0.4 mg/dL (0.6-1.3)
[2020-09-19 06:47] LABS: PHOSPHORUS 4.4 mg/dL (2.5-4.9)
--- NOTE | 2020-09-19 07:10 | NUR ---
ENDORSED PT TO DAY SHIFT NURSE FOR CONTINUITY OF CARE. PT IS AWAKE AND ALERT. NO DISTRESS NOTED. PT STATES SHE IS OKAY AT THIS TIME. PLAN OF CARE DISCUSSED.
[2020-09-19 07:22] LABS: ANION GAP 10.5 (8-16); CARBON DIOXIDE 26.9 mmol/L (21-32); POTASSIUM 4.4 mmol/L (3.5-5.1)
[2020-09-19 20:00] VITALS: BP 113/64
[2020-09-19] MEDS: DEXTROSE IV SCH ×10 (20:00→22:16)
[2020-09-19] MEDS: FAMOTIDINE IV SCH ×10 (20:00→22:16)
[2020-09-19] MEDS: [UNRECOGNIZED DRUG - OTHER] IV SCH ×10 (20:00→22:16)
[2020-09-19] MEDS: MULTIVITAMIN IV SCH ×10 (20:00→22:16)
[2020-09-19] MEDS: FLUCONAZOLE 200 MG/NS PREMIX 100 ML IV SCH (22:06)
[2020-09-20] VITALS: BP 101/74
[2020-09-20] MEDS: LACTATED RINGERS 1,000 ML IV SCH ×4 (03:10→21:06)
[2020-09-20] MEDS: MORPHINE SULFATE 2 MG/ML SYR IVP PRN ×4 (03:27→21:10)
[2020-09-20 04:00] VITALS: BP 130/85
[2020-09-20] MEDS: BLOOD GLUCOSE MONITORING 1 DEV DEV MC SCH ×3 (07:00→18:18)
[2020-09-20 07:10] LABS: ANION GAP 12.3 (8-16); CARBON DIOXIDE 26.6 mmol/L (21-32); CREATININE 0.4 mg/dL (0.6-1.3); POTASSIUM 3.9 mmol/L (3.5-5.1)
[2020-09-20 07:37] LABS: MAGNESIUM 1.5 mg/dL (1.8-2.4); PHOSPHORUS 4.1 mg/dL (2.5-4.9)
[2020-09-20 10:30] LABS: BASOPHILS % (AUTO) 0.1 % (0.0-2.0); EOSINOPHILS % (AUTO) 0.1 % (0.0-4.0); HEMATOCRIT 30.5 % (36-48); HEMOGLOBIN 9.7 g/dL (12.0-16.0); LYMPHOCYTES # (AUTO) 0.2 K/uL (2.5-16.5); LYMPHOCYTES % (AUTO) 1.3 % (20.5-51.1); MEAN CORPUSCULAR HEMOGLOBIN 28 pg (27-31); MEAN CORPUSCULAR HGB CONC 32 g/dL (33-37); MEAN CORPUSCULAR VOLUME 86.9 fL (80-94); MONOCYTES # (AUTO) 0.7 K/uL (0.8-1.0); MONOCYTES % (AUTO) 4.1 % (1.7-9.3); NEUTROPHILS % (AUTO) 94.4 % (42.2-75.2); PLATELET COUNT (AUTO) 224 K/uL (140-450); RED BLOOD CELL COUNT(AUTO) 3.51 MIL/uL (4.20-5.40); RED CELL DISTRIBUTION WIDTH 18.9 % (11.6-13.7); WHITE BLOOD COUNT (AUTO) 16.9 K/uL (4.8-10.8)
[2020-09-20] MEDS: MAG SULF 2000 MG/WATER PREMIX 50 ML IV PRN (11:56)
[2020-09-20] MEDS: FLUCONAZOLE 200 MG/NS PREMIX 100 ML IV SCH (18:46)
--- NOTE | 2020-09-20 19:25 | NUR ---
RECEIVED BEDSIDE REPORT FROM DAY SHIFT NURSE FOR CONTINUITY OF CARE. PT IS AWAKE AND ALERT, A&OX4. ON 2L O2 NC WITH BREATHING UNLABORED. PT IS INCONTINENT WITH DRY DIAPER IN PLACE. ABDOMINAL SURGICAL WOUND WITH JULIANN IN PLACE. DRY AND NO BLEEDING AT SITE. LEFT URSULA DRAIN IN PLACE WITH YELLOW DRAINAGE IN BULB. DRAIN Q8HR PER DOCTOR ORDER. RIGHT UA PICC LINE IN PLACE. PLAN OF CARE DISCUSSED. PT IS STABLE.
[2020-09-20 20:00] VITALS: BP 123/81
[2020-09-20] MEDS: FAMOTIDINE IV SCH ×5 (21:04)
[2020-09-20] MEDS: DEXTROSE IV SCH ×5 (21:04)
[2020-09-20] MEDS: MULTIVITAMIN IV SCH ×5 (21:04)
[2020-09-20] MEDS: [UNRECOGNIZED DRUG - OTHER] IV SCH ×5 (21:04)
--- NOTE | 2020-09-20 21:10 | NUR ---
PT WAS CHANGED AND REPOSITIONED. PT VOIDED IN DIAPER. PT STATES SHE HAS PAIN AT A SCALE OF 10/10. PT WAS GIVEN MORPHINE. BP WAS 123/81 PRIOR TO ADMINISTRATION. WILL MONITOR.
--- NOTE | 2020-09-20 22:01 | NUR ---
PT CARE WAS TRANSFERRED TO [facility] (REGISTRY) FOR CONTINUITY OF CARE. PLAN OF CARE DISCUSSED. PT IS STABLE AT THIS TIME.
[2020-09-21] VITALS: BP 123/81
[2020-09-21] MEDS: MORPHINE SULFATE 2 MG/ML SYR IVP PRN ×3 (02:59→13:18)
[2020-09-21] MEDS: LACTATED RINGERS 1,000 ML IV SCH ×2 (03:28→08:40)
[2020-09-21 04:00] VITALS: BP 123/81
[2020-09-21] MEDS: BLOOD GLUCOSE MONITORING 1 DEV DEV MC SCH ×3 (05:51→12:17)
[2020-09-21 06:24] LABS: BASOPHILS % (AUTO) 0.3 % (0.0-2.0); EOSINOPHILS % (AUTO) 0.1 % (0.0-4.0); HEMATOCRIT 29.2 % (36-48); HEMOGLOBIN 9.5 g/dL (12.0-16.0); LYMPHOCYTES # (AUTO) 0.3 K/uL (2.5-16.5); LYMPHOCYTES % (AUTO) 2.1 % (20.5-51.1); MEAN CORPUSCULAR HEMOGLOBIN 28 pg (27-31); MEAN CORPUSCULAR HGB CONC 32 g/dL (33-37); MONOCYTES # (AUTO) 0.7 K/uL (0.8-1.0); NEUTROPHILS # (AUTO) 12.5 K/uL (1.8-7.7); NEUTROPHILS % (AUTO) 92.5 % (42.2-75.2); PLATELET COUNT (AUTO) 252 K/uL (140-450); RED BLOOD CELL COUNT(AUTO) 3.39 MIL/uL (4.20-5.40); RED CELL DISTRIBUTION WIDTH 18.6 % (11.6-13.7); WHITE BLOOD COUNT (AUTO) 13.5 K/uL (4.8-10.8)
[2020-09-21 06:43] LABS: ANION GAP 8.7 (8-16); CARBON DIOXIDE 26.5 mmol/L (21-32); CREATININE 0.3 mg/dL (0.6-1.3); POTASSIUM 4.2 mmol/L (3.5-5.1)
[2020-09-21 06:54] LABS: MAGNESIUM 2.2 mg/dL (1.8-2.4)
--- NOTE | 2020-09-21 07:20 | NUR ---
RECEIVED REPORT FROM NIGHT NURSE FOR CONTINUITY OF CARE. PT IS AAOX4, PT ON 2L VIA NC. PT HAS NYA PICC INFUSING TPN AT 50, LR AT 150ML/H, PT HAS R CHEST PORTCATH. PT HAS LEFT URSULA DRAIN. PT ABD SURGICAL INCISION JULIANN KEN. PT IS STABLE, SAFETY MEASURES IN PLACE, WILL CONTINUE TO MONITOR.
[2020-09-21 08:00] VITALS: BP 132/92
--- NOTE | 2020-09-21 08:35 | NUR ---
ADMINISTERED SCHEDULED MEDICATION, MORPHINE FOR ABD PAIN 04/16, MEDICATION EDUCATION PROVIDED. PT TOLERATED WELL, PT IS STABLE, WILL CONTINUE TO MONITOR.
[2020-09-21] MEDS ORDERED: LEVO750T51 PO (12:12)
[2020-09-21] MEDS ORDERED: ACET-5629 PO (12:12)
--- NOTE | 2020-09-21 13:22 | NUR ---
ADMINISTERED MORPHINE FOR PAIN 8/10, SHARP PAIN. MEDICATION EDUCATION PROVIDED. PT TOLERATED WELL. PT IS STABLE, WILL CONTINUE TO MONITOR.
--- NOTE | 2020-09-21 15:16 | NUR ---
NOTIFIED PHARMACY PT HAS DISCHARGED ORDERS AND IS ON TPN, RECEIVED ORDERS TO DISCONTINUE TPN FROM DR HOOKS. PER PHARMACY TO TITRATE DOWN TO 25ML/H
--- NOTE | 2020-09-21 16:36 | NUR ---
DR CALL VERBAL ORDER TO LET PHARMACY KNOW NOT TO ORDER ANOTHER TPN BAG, WILL CALL PHARMACY AND INFORM THEM NOT TO ORDER ANOTHER TPN BAG.
--- NOTE | 2020-09-21 17:00 | NUR ---
GAVE DISCHARGE INSTRUCTIONS TO PT'S SISTER ROSALIE. VERBALIZED UNDERSTANDING. WILL PREPARE PT FOR DISCHARGE
--- NOTE | 2020-09-21 18:30 | NUR ---
REMOVED PT PICC LINE PER DR HOOKS ORDER. PT DISCHARGED HOME. PT IS STABLE. PT REFUSED PNA AND FLU VACCINE
== END 2020-09-21 19:17 | disposition home health service (06) | DRG 853 ==
LOC: MED 08:27 → MTU 14:44 → MMU 16:29
PROC: 0W9G0ZZ Drainage of Peritoneal Cavity, Open Approach (ICD-10-PCS; 2020-09-10)
PROC: 0DU607Z Supplement Stomach with Autologous Tissue Substitute, Open Approach (ICD-10-PCS; principal; 2020-09-10 16:00)
PROC: 5A1945Z Respiratory Ventilation, 24-96 Consecutive Hours (ICD-10-PCS; 2020-09-11)
PROC: 0BH17EZ Insertion of Endotracheal Airway into Trachea, Via Natural or Artificial Opening (ICD-10-PCS; 2020-09-11)
PROC: 02H633Z Insertion of Infusion Device into Right Atrium, Percutaneous Approach (ICD-10-PCS; 2020-09-12)
DX: A41.9 Sepsis, unspecified organism (principal); K63.1 Perforation of intestine (nontraumatic); J96.01 Acute respiratory failure with hypoxia; E43 Unspecified severe protein-calorie malnutrition; K25.5 Chronic or unspecified gastric ulcer with perforation; N17.0 Acute kidney failure with tubular necrosis; K85.90 Acute pancreatitis without necrosis or infection, unspecified; R18.8 Other ascites; N32.2 Vesical fistula, not elsewhere classified; J98.11 Atelectasis; J90 Pleural effusion, not elsewhere classified; E87.1 Hypo-osmolality and hyponatremia; C78.7 Secondary malignant neoplasm of liver and intrahepatic bile duct; C79.31 Secondary malignant neoplasm of brain; C53.9 Malignant neoplasm of cervix uteri, unspecified; E87.5 Hyperkalemia; E83.41 Hypermagnesemia; E87.6 Hypokalemia; Z20.822 Contact with and (suspected) exposure to COVID-19; R74.01 Elevation of levels of liver transaminase levels; R13.11 Dysphagia, oral phase; E86.0 Dehydration; D64.9 Anemia, unspecified; D25.9 Leiomyoma of uterus, unspecified; E83.39 Other disorders of phosphorus metabolism; R91.8 Other nonspecific abnormal finding of lung field; R79.89 Other specified abnormal findings of blood chemistry; Z68.20 Body mass index [BMI] 20.0-20.9, adult; Z79.899 Other long term (current) drug therapy
CPT/HCPCS: 36415; 36600; 71045; 74160; 80048; 80053; 82040; 82140; 82150; 82803; 82948; 83036; 83690; 83735; 83880; 84100; 84134; 84436; 84443; 85025; 85379; 85610; 85730; 87040; 93005; 94003; 96365; 97110; 97112; 97116; 97161-GP; 97530; 99291; A9153; J0330; J1450; J1644; J1956; J2001; J2250; J2270; J2543; J2704; J3010; J3475; J3480; J3490; J7030; J7060; J7120; Q9967